=== PATIENT | male | born 1945 | race Caucasian/White ===

== ENCOUNTER 2025-01-15 16:51 | Inpatient (IN) | payer OTHER, SELFPAY ==
[2025-01-14 14:23] VITALS: BP 152/90
[2025-01-14 14:44] LABS: Hematocrit 43.8 % (39.0-52.0); Hemoglobin 15.0 g/dL (13.0-18.0); Mean Corp Hgb Conc. 34.2 g/dL (33.0-37.0); Mean Corpuscular Volume 90.7 fL (80.0-94.0); Nucleated Red Blood Cells % 0 % (-); Platelet Count 200 10^3/uL (130-400); Red Cell Dist. Width 13.1 % (11.5-14.5)
[2025-01-14 15:04] LABS: ALT (SGPT) 19 U/L (0-50); AST (SGOT) 22 U/L (17-59); Albumin 4.7 g/dl (3.5-5.0); Alkaline Phosphatase 103 U/L (38-126); Blood Urea Nitrogen 14 mg/dl (9-20); Calcium 9.7 mg/dl (8.4-10.2); Carbon Dioxide 30 mmol/L (22-30); Chloride 104 mmol/L (98-107); Glucose 111 mg/dl (70-99); Potassium 4.3 mmol/L (3.5-5.1); Sodium 141 mmol/L (135-145); Total Protein 7.6 g/dl (6.3-8.2); eGFR > 60.00
--- NOTE | 2025-01-14 16:44 | ED.GENMED ---
History of Present Illness
General
Chief Complaint: Change in Mental Status
Time Seen by Provider: 01/14/25 16:21
History of Present Illness
History of Present Illness:
80-year-old male with history of hyperlipidemia, hypertension, mild memory loss presenting to the emergency department with sudden onset memory loss this morning. Patient's noticed that patient had no recollection of what she just said to
patient and patient had no recollection of what happened yesterday evening. No traumatic events. No headache. No numbness tingling. No weakness. She does state that he has forgetfulness sometimes but never to this degree. He does have history
of TIA.
Phy Exam
Physical Exam
Physical Exam:
GENERAL: in no acute distress
HEENT: normocephalic, extraocular movements intact, moist oral mucosa
NECK: normal inspection
RESPIRATORY: no respiratory distress, clear to auscultation bilaterally
CARDIOVASCULAR: regular rate and rhythm
ABDOMEN/: soft, non-distended, non-tender to palpation, no rebound or guarding
EXTREMITIES: non-tender, no edema/swelling
NEUROLOGIC: alert and oriented x 3, cranial nerves II-XII intact, right upper extremity strength 5/5, left upper extremity strength 5/5, right lower extremity strength 5/5, left lower extremity strength 5/5, normal sensation to light touch, normal
pujopq-iw-oyjf and wibt-ye-cfak, gait not tested formally
SKIN: warm
Course
Orders/Labs/Results
Orders:
Orders
01/14/25 14:32
Complete Blood Count/With Diff Urgent
Comprehensive Metabolic Panel Urgent
01/14/25 16:22
Electrocardiogram (*1) Urgent
Reason for Study: TIA/Stroke
EKG- Treatment ONCE
01/14/25 16:43
CT Head W/o Iv Contrast Urgent
Comment:
Reason For Exam: amnesia
01/14/25 17:55
Urinalysis Reflex To Culture Urgent
Date Specimen was Collected: 01/14/25
Time Specimen was Collected: 17:53
Abnormal Lab Results
01/14/25
14:32
MCH 31.1 H pg
(27.0-31.0)
Absolute Lymphs (auto) 1.0 L 10^3/uL
(1.2-3.4)
Absolute Monos (auto) 1.0 H 10^3/uL
(0.1-0.6)
Lymphocytes % 13.5 L %
(20.5-51.1)
Monocytes % 12.8 H %
(1.7-9.3)
Glucose 111 H mg/dl
(70-99)
01/14/25 14:32
01/14/25 14:32
Vital Signs
Initial and Last Documented VS:
Initial Vital Signs
Temp Pulse Resp BP Pulse Ox
98.0 F 64 16 152/90 98
01/14/25 14:23 01/14/25 14:23 01/14/25 14:23 01/14/25 14:23 01/14/25 14:23
Last Documented Vital Signs
Temp Pulse Resp BP Pulse Ox
98.0 F 63 16 164/92 96
01/14/25 14:23 01/14/25 16:59 01/14/25 16:59 01/14/25 16:59 01/14/25 16:59
MDM/Problems Addressed
Differential Diagnosis Includes:
Patient is a 72-year-old man presenting to the emergency department with sudden onset memory loss that occurred this morning. Vitals and exam is reassuring. Differential consists of transient global amnesia versus electrolyte derangement or
infection though less likely. Could be TIA. Blood work obtained prior to my evaluation is unremarkable. Will obtain EKG urinalysis and CT scan. Patient will need admission for further evaluation.
*Pulse Oximetry
SaO2: 98
Oxygen Mode of Delivery: Room air
Patient hypoxic: no (96)
*Critical Care Note
Total Time (30-74mins, 75-104mins- exclusive of procedures): Not Applicable
Update Note
Update Note:
Urinalysis unremarkable. Discussed with hospitalist excepted patient to their service with CT scan pending.
ED Attending Note
-
Portions of this chart may have been created with voice recognition software.� Occasional wrong word or��sound alike� substitutions may have occurred due to the inherent limitations of voice recognition software.
Discharge Plan
Departure
Patient Disposition: Admit
Date of Disposition: 01/14/25
Time of Disposition: 19:16
Presentation/result/management discussed w/ accepting MD/DO: Hospitalist
Discharge Problem:
TGA (transient global amnesia)
Referrals:
Virginia Lopez DO [Family Provider, Internal Medicine]
Interventions
Interventions:
*Risk Screen - Suicide Last Done: 01/14/25 14:23
*General Assessment Last Done: 01/14/25 16:57
*Neglect/Abuse Screening Last Done: 01/14/25 14:23
*ED- Fall Risk Assessment Last Done: 01/14/25 16:57
*ED COVID-19 Vaccine History Last Done: 01/14/25 16:57
ED- Pulmonary Assessment Last Done: 01/14/25 16:57
ED- Neurological Assessment Last Done: 01/14/25 16:57
ED- Cardiac Assessment Last Done: 01/14/25 16:57
ED Swallowing Screen Last Done: 01/14/25 16:57
Discharge Date and Time
Print Language: POLISH
[2025-01-14 16:57] VITALS: BMI 30.9
[2025-01-14 16:59] VITALS: BP 164/92
[2025-01-14 18:03] LABS: Urine Character Clear (Clear)
--- NOTE | 2025-01-14 19:44 | HPS.HSE ---
Family Physician
-
Family Physician: Virginia Lopez
Chief Complaint
-
memory loss
History of Present Illness
80-year-old male past medical history of TIA, hyperlipidemia, hypertension, mild memory impairment presenting with sudden onset memory loss this morning. Patient's noticed that patient had no recollection of what she just said to him and he
had no recollection of what happened yesterday evening. No head injury or trauma. No headache. No numbness or tingling or focal weakness. He has occasional forgetfulness but never to this degree.
He admits to chewing tobacco occasionally. Denies alcohol.
Medical History
Past Medical History
Past Medical History: Reports Other (TIA, hyperlipidemia, hypertension, mild memory impairment)
Past Surgical History: Reports None
Social History
Tobacco: Other (chews tobacco)
Alcohol: None
Drug: None
Family History
Family History: Not pertinent
Allergies / Home Medications
Allergies reflects when Allergies were last updated in [employer].
Home Medications with original date entered in [employer]
Allergy/Medication List:
Allergies
Allergy/AdvReac Type Severity Reaction Status Date / Time
multi vitamins Allergy Unknown Uncoded 01/14/25 14:28
Review of Systems
-
History Source: Patient
A 12 point ROS was completed and negative except as noted: Yes
Physical Exam
Vital Signs
Vital Signs
Temp Pulse Resp BP Pulse Ox
98.0 F 63 16 164/92 96
01/14/25 14:23 01/14/25 16:59 01/14/25 16:59 01/14/25 16:59 01/14/25 16:59
Physical Exam
General: Well Developed, Well Nourished and No Apparent Distress
HEENT: NormoCephalic, Moist mucous membranes and Atraumatic
Respiratory: Clear
Cardiac: S1/S2 and Regular Rhythm; No Murmur or Rub
GI: Soft, Non Tender, Non Distended and Normal Bowel Sounds; No Organomegaly
Rectal: Deferred by Provider
Musculoskeletal: No Clubbing, No Cyanosis and No Edema
Skin: No Rash
Neuro: Nonfocal/grossly intact
Laboratory Results
-
01/14/25 14:32
01/14/25 14:32
Laboratory Results
Total Bilirubin 0.8 mg/dl (0.2-1.3) 01/14/25 14:32
AST 22 U/L (17-59) 01/14/25 14:32
ALT 19 U/L (0-50) 01/14/25 14:32
Alkaline Phosphatase 103 U/L (38-126) 01/14/25 14:32
Data Reviewed
-
Lab Data: Labs Reviewed by me
Old Records: Reviewed
Impression/Plan
-
IMPRESSION:
PLAN:
# Sudden memory loss likely transient global amnesia
-No neurological deficits
- Urinalysis negative
- CT head pending
- Check MRI brain
-Neurology consulted
-unable to get history from
History of TIA
Hyperlipidemia
Essential hypertension
History of mild memory impairment
Full code
DVT prophylaxis�SCDs
Regular diet
[2025-01-14 21:04] VITALS: BMI 31.3
[2025-01-14 21:15] VITALS: BP 139/104
--- NOTE | 2025-01-14 21:15 | PTCARENOTE ---
Received patient from ED via stretcher. Patient ambulated from stretcher to bed with a standby assist. Oriented patient to room and placed call montgomery within reach.
[2025-01-14] MEDS: VITAMIN D3 (cholecalciferol) 25 MCG PO (22:15)
[2025-01-14] MEDS: PROTONIX 20 MG PO (22:16)
[2025-01-14] MEDS: LEXAPRO 20 MG PO (22:16)
[2025-01-14] MEDS: ASPIRIN 325 MG PO (22:16)
[2025-01-14] MEDS: PRAVACHOL 40 MG PO (22:23)
[2025-01-14 23:35] VITALS: BP 138/80
[2025-01-15] VITALS (7 sets, daily range): BP systolic 140–168; BP diastolic 74–97
[2025-01-15] MEDS: MOTRIN 800 MG PO (02:27)
[2025-01-15 07:53] LABS: Hematocrit 42.4 % (39.0-52.0); Hemoglobin 14.2 g/dL (13.0-18.0); Mean Corp Hgb Conc. 33.5 g/dL (33.0-37.0); Mean Corpuscular Volume 91.6 fL (80.0-94.0); Nucleated Red Blood Cells % 0 % (-); Platelet Count 192 10^3/uL (130-400); Red Cell Dist. Width 13.2 % (11.5-14.5)
[2025-01-15 08:24] LABS: ALT (SGPT) 18 U/L (0-50); AST (SGOT) 24 U/L (17-59); Albumin 4.2 g/dl (3.5-5.0); Alkaline Phosphatase 108 U/L (38-126); Blood Urea Nitrogen 16 mg/dl (9-20); Calcium 8.7 mg/dl (8.4-10.2); Carbon Dioxide 29 mmol/L (22-30); Chloride 104 mmol/L (98-107); Estimated Creatinine Clearance 80 ml/min; Glucose 93 mg/dl (70-99); Potassium 4.5 mmol/L (3.5-5.1); Sodium 141 mmol/L (135-145); Total Protein 6.8 g/dl (6.3-8.2); eGFR > 60.00
--- NOTE | 2025-01-15 14:57 | W.PN.HOSP.TC ---
Addendum entered and electronically signed by Rosette España MD 01/15/25 16:00:
I saw and evaluated the patient independently. I reviewed the resident�s note and agree with findings and plan as documented by Dr. Loving.
GENERAL: well developed, well nourished, male in no apparent distress
HEENT: NC/AT
HEART: regular rate and rhythm, +S1, +S2
LUNGS : clear to auscultation bilaterally
ABDOM: soft, nontender, nondistended, + bowel sounds
EXT: no cyanosis, clubbing, or edema
NEUROLOGIC: grossly intact--still does have evidence of memory deficit
Altered mental status/memory impairment--likely transient global amnesia versus TIA versus seizure versus encephalitis--head CT neg but MRI with significant findings in temporal lobe--no physical neurologic issues--no signs of infection--await neuro
input
Hyperlipidemia--pravastatin
Essential hypertension--atenolol
depression--escitalopram
DVT proph--SCDs
CODE STATUS--Full code
Original Note:
Today's Communication/Plan
-
restarted HTN med
awaiting neurology consultation
Assessment / Plan
Assessment / Plan
Mr. Fenton is a 80-year-old male past medical history of TIA, hyperlipidemia, hypertension, depression, mild memory impairment presenting with sudden onset memory loss. Patient's noticed that patient had no recollection of what she just said to
him and he had no recollection of what happened evening before (01/13). She reports no head injury or trauma. No headache. He has no numbness or tingling or focal weakness. Head CT was normal with no signs of hemorrhage or ischemia. Brain MRI
concerning for abnormalities. Neurology consulted for further recs.
#Altered mental status
#memory impairment
likely transient global amnesia versus TIA versus seizure versus encephalitis
CT head normal
Brain MRI--Punctate foci of increased diffusion-weighted signal are often seen in association with transient global amnesia, usually smaller than in this patient, arger area of signal abnormality raises the possibility of signal intensity
abnormality from a seizure or encephalitis
No neurological deficits, less likely stroke
Urinalysis negative, less likely infection
Neurology consulted
#Hyperlipidemia
pravastatin 40mg QD
#Essential hypertension
atenolol 100mg QD
#depression
escitalopram 20mg QD
DVT prophylaxis
SCDs
CODE STATUS
Full code
Anticipated Discharge: > 48 hours
Subjective/Interval History
-
Patient was seen today at bedside. he reported feeling well and had no issues overnight. He doesnt not clearly remember how he got to the hospital and last remebered being at dinner with friends tuesday night, when it was actually tuesday night. He
does not remember much else afterwards. at bedside reports that she noticed a change that evening that started with him having cold symptoms, cough runny nose that resolved quickly. Later that evening he laid down to take a nap and his
noticed that his left arm was shaking on and off for 1hr. She also reported that he may not have been taking his medications properly for about 2 months. She states that he is currently about 90% back to baseline and that his sister was recently
diagnosed with vascular dementia. Date of Service: January 15, 2025
Objective Data
-
Labs:
Laboratory Results
01/15/25
06:23
WBC 6.7
Hgb 14.2
Hct 42.4
Plt Count 192
Sodium 141
Potassium 4.5
Chloride 104
Carbon Dioxide 29
BUN 16
Creatinine 0.9
Glucose 93
Calcium 8.7
Total Bilirubin 0.7
AST 24
ALT 18
Alkaline Phosphatase 108
Vital Signs:
Vital Signs
Temp Pulse Resp BP Pulse Ox
98.8 F 61 16 149/85 93
01/15/25 11:00 01/15/25 11:00 01/15/25 11:00 01/15/25 11:00 01/15/25 11:00
I&O
01/14/25 01/15/25 01/16/25
06:59 06:59 06:59
Intake Total 480 / 480
Balance 480 / 480
Review of Systems
-
History Source: Patient and Family
Constitutional: Reports No Symptoms; Denies Fever or Fatigue
EENT: Reports No Symptoms Reported; Denies Sore Throat
Respiratory: Reports No Symptoms; Denies Cough or Trouble Breathing
Cardiac: Reports No Symptoms; Denies Chest Pain or Palpitations
Abdomen/GI: Reports No Symptoms; Denies Abdominal Pain, Nausea or Vomiting
Genitourinary: Reports No Symptoms; Denies Dysuria
Musculoskeletal: Reports No Symptoms; Denies Joint Pain
Neuro: Reports No Symptoms; Denies Dizzy, Headache, Weakness or Numbness
Physical Exam
-
General: Well Developed, Well Nourished, No Apparent Distress and Comfortable
HEENT: Normocephalic, Atraumatic, Anicteric, No Ptosis and PERRLA
Respiratory: Clear to Auscultation; Negative Wheezes, Rales or Crackles
Cardiac: Regular Rhythm and S1/S2; Negative Murmur or Rub
GI: Soft, Nontender, Nondistended and Normal Bowel Sounds
Musculoskeletal: No Clubbing
Neuro: Awake, Alert, Oriented, AO x 3, No Motor Deficits, Central Nerve's Intact and No Sensory Deficits; Negative Tremors, Slurred Speech or Facial Droop
--- NOTE | 2025-01-15 15:16 | CM ---
Patient seen at bedside on with physicians. Patient present second visit. Patient lives with in an apartment at [facility]. Patient stated that his PCP is Dr. Villela and he uses the [facility] in [place]. Patient indicated that
he was normally independent but uses a CPAP machine at home. Patient has had some issues with memory in the past and his sister was just diagnosed with vascular dementia per patient . Patient stated that he was independent and did not use any
other DME. Patient family awaiting Neuro consult. CM will continue to follow for discharge planning needs.
Plan; home with VN and family supports.
[2025-01-15] MEDS: PROTONIX 40 MG PO (20:44)
[2025-01-15] MEDS: PRAVACHOL 40 MG PO (20:44)
[2025-01-15] MEDS: VITAMIN D3 (cholecalciferol) 25 MCG PO (20:44)
[2025-01-15] MEDS: LEXAPRO 20 MG PO (20:44)
[2025-01-15] MEDS: TENORMIN 100 MG PO (20:45)
--- NOTE | 2025-01-15 21:23 | CON.NEURO ---
Neuro Assessment/Plan
Assessment
clinically transient global amnesia now resolved
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
believe that it could be sequela of seizure which would be expect to resolve within days; it being the cause of seizure would be less likely as no clinical suspicion for encephalitis, and the shape would be unusual for a tumor/mass
will check EEG and if normal D/c home no rx
would repeat MRI w/o and w/ contrast in a few weeks to confirm resolution
Consultation
Order
Date of Consultation: 01/15/25
Requesting Provider: Broderick Cavazos
Reason for Consult: TGA
Subjective/Objective
Subjective Data
Date of Service: January 15, 2025
from h&p
80-year-old male past medical history of TIA, hyperlipidemia, hypertension, mild memory impairment presenting with sudden onset memory loss this morning. Patient's noticed that patient had no recollection of what she just said to him and he
had no recollection of what happened yesterday evening. No head injury or trauma. No headache. No numbness or tingling or focal weakness. He has occasional forgetfulness but never to this degree.
patient and report he is back to his baseline. no recent personality changes, no hallucinations, no weakness/numbness
she noted some abnormal jerking movements left arm only during sleep on tuesday.
Objective Data
Vital Signs
Temp Pulse Resp BP Pulse Ox
37.1 C 64 19 142/84 92
01/15/25 19:35 01/15/25 19:35 01/15/25 19:35 01/15/25 19:35 01/15/25 19:35
Lab Results
01/15/25 06:23
01/15/25 06:23
Sodium 141 mmol/L (135-145) 01/15/25 06:23
Potassium 4.5 mmol/L (3.5-5.1) 01/15/25 06:23
BUN 16 mg/dl (9-20) 01/15/25 06:23
Glucose 93 mg/dl (70-99) 01/15/25 06:23
Calcium 8.7 mg/dl (8.4-10.2) 01/15/25 06:23
Patient Allergies
multi vitamins Allergy (Uncoded 01/14/25 14:28)
Unknown
Physical Exam
-
AAOx3, speech clear, language intact
VFF, EOMI, face symmetric
full strength b/l UE/LE
Medications
-
Active Medications
Generic Name Dose Route Start Last Admin
Trade Name Freq PRN Reason Stop Dose Admin
Atenolol 100 mg 01/15/25 20:00 01/15/25 20:45
Atenolol 50 Mg Tablet PO 02/12/25 19:59 100 mg
DAILY@1999 [facility] Administration
Cholecalciferol 25 mcg 01/15/25 20:00 01/15/25 20:44
Cholecalciferol (Vitamin D3) 25 Mcg Tablet (1,000 Units) PO 02/12/25 19:59 25 mcg
DAILY@1999 [facility] Administration
Escitalopram Oxalate 20 mg 01/15/25 20:00 01/15/25 20:44
Escitalopram 20 Mg Tablet PO 02/12/25 19:59 20 mg
DAILY@1999 [facility] Administration
Ferrous Sulfate 325 mg 01/16/25 08:00
Ferrous Sulfate 325 Mg Tablet PO 02/13/25 07:59
WE DELMA
Ibuprofen 800 mg 01/15/25 02:16 01/15/25 02:27
Ibuprofen 400 Mg Tablet PO 02/11/25 22:03 800 mg
BIDPRN PRN Administration
MILD PAIN
Pantoprazole Sodium 40 mg 01/15/25 20:00 01/15/25 20:44
Pantoprazole 40 Mg Delayed Release Tablet PO 02/12/25 19:59 40 mg
DAILY@1999 [facility] Administration
Pravastatin Sodium 40 mg 01/15/25 20:00 01/15/25 20:44
Pravastatin 40 Mg Tablet PO 02/12/25 19:59 40 mg
DAILY@1999 [facility] Administration
Sodium Chloride 0 flush 01/14/25 22:00
Sodium Chloride 0.9% (Flush) Syringe IV 02/11/25 21:59
PER PROTOCOL [facility]
Home Medications
�Medication �Instructions �Recorded
aspirin 325 mg tablet 325 mg PO DAILY@1999 Blood Clot 01/14/25
Prevention/Tx
atenolol 100 mg tablet 100 mg PO DAILY@1999 Blood Pressure 01/14/25
bismuth subsalicylate 262 mg 524 mg PO DAILYPRN PRN diarrhea 01/14/25
tablet (Pepto-Bismol)
cholecalciferol (vitamin D3) 25 25 mcg PO DAILY@1999 Supplement 01/14/25
mcg (1,000 unit) tablet
escitalopram oxalate 20 mg tablet 20 mg PO DAILY@1999 Diabetes 01/14/25
ferrous sulfate 325 mg (65 mg 325 mg PO WE Supplement 01/14/25
iron) tablet (iron)
ibuprofen 200 mg tablet 800 mg PO BIDPRN PRN mild pain 01/14/25
omeprazole 20 mg capsule,delayed 20 mg PO DAILY@199901/14/25
release Gastrointestinal Issue
pravastatin 40 mg tablet 40 mg PO DAILY@1999 High 01/14/25
Cholesterol
[2025-01-16] VITALS (9 sets, daily range): BP systolic 127–163; BP diastolic 68–99; PULSE 52–63; O2SAT 96
[2025-01-16 07:44] LABS: Hematocrit 41.5 % (39.0-52.0); Hemoglobin 14.4 g/dL (13.0-18.0); Mean Corp Hgb Conc. 34.7 g/dL (33.0-37.0); Mean Corpuscular Volume 91.0 fL (80.0-94.0); Platelet Count 180 10^3/uL (130-400); Red Cell Dist. Width 13.1 % (11.5-14.5)
[2025-01-16 08:19] LABS: Blood Urea Nitrogen 16 mg/dl (9-20); Calcium 9.0 mg/dl (8.4-10.2); Carbon Dioxide 26 mmol/L (22-30); Chloride 106 mmol/L (98-107); Estimated Creatinine Clearance 103 ml/min; Glucose 107 mg/dl (70-99); Potassium 3.8 mmol/L (3.5-5.1); Sodium 139 mmol/L (135-145); eGFR > 60.00
[2025-01-16] MEDS: FEOSOL 325 MG PO (08:50)
--- NOTE | 2025-01-16 12:40 | EEG.RPT ---
Electroencephalogram Report
Recording
Date of EE01/16/25
Type of EEG: Routine
Length of EEG recordin mins
Done with Video Recording: Yes
Patient Status: Inpatient
Recording Conditions: Awake and Drowsy
Hyperventilation Performed: No
Photic Stimulation Performed: Yes
Hand Dominance: Right
Report
Clinical Background:�80 year old man with transient global amnesia, suspected seizure
Introduction: A routine bedside EEG was done using [employer] 10-20 electrode placement protocol.
Background: In the most alert state, the PDR is 8-9 Hz in frequency with normal amplitude. There is spontaneous variability and reactivity.�
Sleep: No sleep is seen.�
Focal/epileptiform: Occasional focal slowing left hemisphere seen F7, T3, T5, F3, C3. There were no epileptiform discharges. No clinical or electrographic seizures occurred during this recording.
Photic stimulation: resulted in no driving response. There was no photo myogenic or photoparoxysmal response.�
Impression: intermittent focal slowing left hemisphere
Clinical Correlation: structural/function abnormality within left hemisphere
[2025-01-16] MEDS: MOTRIN 800 MG PO (13:10)
--- NOTE | 2025-01-16 15:11 | W.PN.HOSP.TC ---
Addendum entered and electronically signed by Rosette España MD 01/16/25 17:26:
I saw and evaluated the patient independently. I reviewed the resident�s note and agree with findings and plan as documented by Dr. Loving.
GENERAL: well developed, well nourished, male in no apparent distress
HEENT: NC/AT
HEART: regular rate and rhythm, +S1, +S2
LUNGS : clear to auscultation bilaterally
ABDOM: soft, nontender, nondistended, + bowel sounds
EXT: no cyanosis, clubbing, or edema
NEUROLOGIC: grossly intact--still does have evidence of memory deficit
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
Hyperlipidemia--pravastatin
Essential hypertension--atenolol
depression--escitalopram
DVT proph--SCDs
CODE STATUS--Full code
Original Note:
Today's Communication/Plan
-
EEG done today showing possible encephalitis
ID consulted
Assessment / Plan
Assessment / Plan
Mr. Fenton is a 80-year-old male past medical history of TIA, hyperlipidemia, hypertension, depression, mild memory impairment presenting with sudden onset memory loss. Patient's noticed that patient had no recollection of what she just said to
him and he had no recollection of what happened evening before (01/13). She reports no head injury or trauma. No headache. He has no numbness or tingling or focal weakness. Head CT was normal with no signs of hemorrhage or ischemia. Brain MRI
concerning for abnormalities. Neurology consulted and ordered EEG. EEG showed left focal slowing concerning for encephalitis. LP ordered to evaluate.
#Altered mental status
#memory impairment
likely transient global amnesia versus TIA versus seizure versus encephalitis
CT head normal
Brain MRI--Punctate foci of increased diffusion-weighted signal are often seen in association with transient global amnesia, usually smaller than in this patient, larger area of signal abnormality raises the possibility of signal intensity
abnormality from a seizure or encephalitis
No neurological deficits, less likely stroke
Urinalysis negative, less likely infection
Neurology consulted
would repeat MRI w/o and w/ contrast in a few weeks to confirm resolution
EEG showed left focal slowing concerning for encephalitis.
LP ordered
ID consult
#Diarrhea
one episode
cont to monitor
consider Imodium if it continues
#Hyperlipidemia
pravastatin 40mg QD
#Essential hypertension
atenolol 100mg QD
#depression
escitalopram 20mg QD
DVT prophylaxis
SCDs
CODE STATUS
Full code
Anticipated Discharge: 24 - 48 hours
Subjective/Interval History
-
Patient was seen at bedside today without present. He reported no issues overnight but was confused in the middle of the night and had to be reoriented. This AM patient was more disoriented than yesterday and could not remember speaking with
neurologist. PT was evaluated by OT with [facility] showing cognitive impairment. He reported an episode of diarrhea but does not have abdominal pain. Date of Service: January 16, 2025
Objective Data
-
Labs:
Laboratory Results
01/16/25
06:59
WBC 7.9
Hgb 14.4
Hct 41.5
Plt Count 180
Sodium 139
Potassium 3.8
Chloride 106
Carbon Dioxide 26
BUN 16
Creatinine 0.7
Glucose 107 H
Calcium 9.0
Vital Signs:
Vital Signs
Temp Pulse Resp BP Pulse Ox
98.5 F 59 16 163/95 93
01/16/25 12:00 01/16/25 12:00 01/16/25 12:00 01/16/25 12:00 01/16/25 12:00
I&O
0701/16/25 01/17/25
06:59 06:59 06:59
Intake Total 480 / 480 480 / 480
Output Total 650 / 650
Balance 480 / 480 -170 / -170
Review of Systems
-
Unable to obtain full review of systems at this time due to: Dementia
History Source: Patient
Constitutional: Reports No Symptoms; Denies Fever or Fatigue
EENT: Reports No Symptoms Reported; Denies Sore Throat or Runny Nose
Respiratory: Reports No Symptoms; Denies Cough or Trouble Breathing
Cardiac: Reports No Symptoms; Denies Chest Pain or Palpitations
Abdomen/GI: Reports Diarrhea; Denies Abdominal Pain, Nausea or Vomiting
Musculoskeletal: Reports No Symptoms
Neuro: Reports No Symptoms; Denies Dizzy, Headache or Weakness
Physical Exam
-
General: Well Developed, Well Nourished, No Apparent Distress and Comfortable
HEENT: Normocephalic and Atraumatic
Respiratory: Clear to Auscultation; Negative Wheezes or Crackles
Cardiac: Regular Rhythm and S1/S2; Negative Murmur or Rub
GI: Soft, Nontender, Nondistended and Normal Bowel Sounds
Musculoskeletal: No Clubbing, No Cyanosis and No Edema
Skin: Warm and Dry
Neuro: Awake, Alert, AO x 3 (AAO x 1 to self, ), No Motor Deficits and Nonfocal/Grossly Intact; Negative Slurred Speech
Psych: Calm
--- NOTE | 2025-01-16 18:02 | CON.ID ---
Consultation
-
Date/Time Consultation Requested: 01/16/2025 1531
Date/Time Consultation Performed: 01/16/2025 1750
Requesting Provider: Dr. Loving
Performing Provider: Dr. Martins
Reason for Consultation: Encephalopathy
Chief Complaint / Past History
History of Present Illness
Austin Fenton is a 80-year-old man being evaluated at the request of Dr. Loving regarding encephalopathy. History is obtained from chart review, along with patient interview.
According to reviewed history, the patient presented to the ER on 01/14/2025 after the sudden onset of memory loss earlier that morning. According to reviewed history, the patient's noticed that the patient had no recollection of what she had
just said to the patient and no recollection of what had happened the evening prior. No history of traumatic events, no reported headache. No seizure activity was noted. The had admitted that the patient was sometimes forgetful but never to
this degree.
The patient was admitted, and evaluated by neurology. Additionally, MRI imaging was performed which revealed an abnormality in the left temporal lobe area. Infectious Diseases is asked to comment upon possible infectious etiology, and further
workup.
At this time, the patient reports that he still feels 'out of it'. He denies any headache. He denies any fevers or chills.
Past History
Additional Past Medical History:
TIA
HLD
HTN
Memory impairment
Past Surgical History: None
Allergy History:
multi vitamins Allergy (Uncoded 01/14/25 14:28)
Unknown
Medications Reviewed: Yes
Current Antibiotics:
None
Social History
Tobacco: Other (Chew tobacco (occasional))
Alcohol: None
Drug: None
Personal:
Living: With Family
Employment: Retired
Family History
Family History: Not Pertinent
Review of Systems
Vital Signs
Temp Pulse Resp BP Pulse Ox
98.1 F 58 18 144/83 96
01/16/25 15:07 01/16/25 15:07 01/16/25 15:07 01/16/25 15:07 01/16/25 15:07
Physical Exam
Physical Exam
Constitutional: No Acute Distress, Comfortable and Non-toxic
Eyes: No Conjunctival Hemorrhage and Sclera Anicteric
Oral: No Thrush and No Ulcers
Cardiovascular: Regular Rate and S1/S2; Negative S3/S4
Pulmonary: Clear; Negative Wheezes, Rales or Rhonchi
Gastrointestinal: Non Tender and Non Distended
Extremities: Negative Edema or Cyanosis
Neurological: Awake, Alert, Normal Muscle Strength, No Motor Deficits and Other (occasional 'thought finding' inability); Negative Meningeal Signs
Psychological: Calm and Confused (very mild); Negative Agitated
Lab / Diagnostic Study Results
01/16/25 06:59
01/16/25 06:59
Abs Immat Gran (auto) 0.0 10^3/uL (0-0.05) 01/15/25 06:23
Absolute Neuts (auto) 4.3 10^3/uL (1.4-6.5) 01/15/25 06:23
Absolute Lymphs (auto) 1.2 10^3/uL (1.2-3.4) 01/15/25 06:23
Absolute Monos (auto) 1.1 10^3/uL (0.1-0.6) H 01/15/25 06:23
Absolute Basos (auto) 0.0 10^3/uL (0-0.2) 01/15/25 06:23
Immature Gran % 0.3 % (0-0.5) 01/15/25 06:23
Neutrophils % 64.0 % (42.2-75.2) 01/15/25 06:23
Lymphocytes % 17.6 % (20.5-51.1) L 01/15/25 06:23
Monocytes % 16.1 % (1.7-9.3) H 01/15/25 06:23
Eosinophils % 1.5 % (0-6) 01/15/25 06:23
Basophils % 0.5 % (0-2) 01/15/25 06:23
Microbiology Results
Micro:
01/15/25 03:16 MRSA Screen - Final
Nose No Methicillin Resistant Staphylococcus aureus isolated.
Imaging:
01/15/2025 MRI brain: Increased diffusion�weighted signal and increased T2 and flair signal involving the medial left temporal lobe. The degree of signal abnormality in this patient is greater than usually expected in association with transient
global amnesia. Therefore, differential consideration of focus of epilepsy, with resultant signal intensity abnormality from a seizure. Encephalitis could conceivably be considered as a differential consideration, although felt to be less likely,
based on morphology and distribution. Please correlate clinically. Please see full dictation for additional detail.
Assessment / Plan
Encephalopathy
- Temporal lobe abnormality noted on MRI
TIA
HLD
HTN
Memory impairment
Recommendations:
Although somewhat unlikely given physical exam, VZV and HSV encephalopathy remain in the differential.
Patient plan for LP tomorrow.
Pending diastolic procedure, will initiate empiric acyclovir.
Await results from LP; if CSF PCR negative for HSV and VZV, will discontinue further acyclovir.
[2025-01-16] MEDS: ZOVIRAX INJECTION 266 MG IV (18:32)
--- NOTE | 2025-01-16 20:42 | W.PN.NEURO.1 ---
Today's Communication / Plan
-
LP tomorrow
Neuro Assessment/Plan
Assessment
clinically transient global amnesia now resolved
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
believe that it could be sequela of seizure which would be expect to resolve within days; it being the cause of seizure would be less likely as no clinical suspicion for encephalitis, and the shape would be unusual for a tumor/mass
EEG showing left hemisphere focal slowing indicating structural/functional abnormality
with worsening mentation and concern that the MRI lesion Represents encephalitis, check LP for viral PCR, crypto, acid fast, fungal culture for now
Subjective/Objective
Subjective Data
Date of Service: January 16, 2025
today memory is significantly worse, can't remember his age or how many children he has. no further seizures
Objective Data
Vital Signs
Temp Pulse Resp BP Pulse Ox
36.9 C 63 20 155/84 93
01/16/25 19:23 01/16/25 19:23 01/16/25 19:23 01/16/25 19:23 01/16/25 19:23
Lab Results
01/16/25 06:59
01/16/25 06:59
Sodium 139 mmol/L (135-145) 01/16/25 06:59
Potassium 3.8 mmol/L (3.5-5.1) 01/16/25 06:59
BUN 16 mg/dl (9-20) 01/16/25 06:59
Glucose 107 mg/dl (70-99) H 01/16/25 06:59
Calcium 9.0 mg/dl (8.4-10.2) 01/16/25 06:59
Patient Allergies
multi vitamins Allergy (Uncoded 01/14/25 14:28)
Unknown
Physical Exam
-
awake and alert, cooperative, conversant, disoriented
VFF, EOMI, face symmetric
full strength b/l UE/LE
[2025-01-16] MEDS: LEXAPRO 20 MG PO (22:44)
[2025-01-16] MEDS: PROTONIX 40 MG PO (22:44)
[2025-01-16] MEDS: VITAMIN D3 (cholecalciferol) 25 MCG PO (22:45)
[2025-01-16] MEDS: TENORMIN PO (22:48)
[2025-01-16] MEDS: PRAVACHOL 40 MG PO (22:49)
[2025-01-17] VITALS (13 sets, daily range): BP systolic 71–168; BP diastolic 68–95; PULSE 67; O2SAT 97
[2025-01-17] MEDS: ZOVIRAX INJECTION 266 MG IV ×3 (02:47→18:14)
[2025-01-17 07:23] LABS: Hematocrit 39.1 % (39.0-52.0); Hemoglobin 13.7 g/dL (13.0-18.0); Mean Corp Hgb Conc. 35.0 g/dL (33.0-37.0); Mean Corpuscular Volume 90.9 fL (80.0-94.0); Platelet Count 156 10^3/uL (130-400); Red Cell Dist. Width 13.2 % (11.5-14.5)
[2025-01-17 07:50] LABS: Blood Urea Nitrogen 14 mg/dl (9-20); Calcium 8.8 mg/dl (8.4-10.2); Carbon Dioxide 30 mmol/L (22-30); Chloride 106 mmol/L (98-107); Estimated Creatinine Clearance 90 ml/min; Glucose 106 mg/dl (70-99); Potassium 4.2 mmol/L (3.5-5.1); Sodium 140 mmol/L (135-145); eGFR > 60.00
--- NOTE | 2025-01-17 10:42 | W.PN.HOSP.TC ---
Addendum entered and electronically signed by Rosette España MD 01/17/25 15:08:
I saw and evaluated the patient independently. I reviewed the resident�s note and agree with findings and plan as documented by Dr. Loving.
GENERAL: well developed, well nourished, male in no apparent distress
HEENT: NC/AT
HEART: regular rate and rhythm, +S1, +S2
LUNGS : clear to auscultation bilaterally
ABDOM: soft, nontender, nondistended, + bowel sounds
EXT: no cyanosis, clubbing, or edema
NEUROLOGIC: grossly intact--still does have evidence of memory deficit
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
Hyperlipidemia--pravastatin
Essential hypertension--atenolol
depression--escitalopram
DVT proph--SCDs
CODE STATUS--Full code
Original Note:
Today's Communication/Plan
-
LP today
started empiric acyclovir
Assessment / Plan
Assessment / Plan
Mr. Fenton is a 80-year-old male past medical history of TIA, hyperlipidemia, hypertension, depression, mild memory impairment presenting with sudden onset memory loss. Patient's noticed that patient had no recollection of what she just said to
him and he had no recollection of what happened evening before (01/13). She reports no head injury or trauma. No headache. He has no numbness or tingling or focal weakness. Head CT was normal with no signs of hemorrhage or ischemia. Brain MRI
concerning for abnormalities. Neurology consulted and ordered EEG. EEG showed left focal slowing concerning for encephalitis. LP ordered to evaluate. Started on empiric acyclovir 01/16. OT assessed patient's cognitive function which showed impairement
with BCAT of 30/50
#Altered mental status
#memory impairment
likely transient global amnesia versus TIA versus seizure versus encephalitis
CT head normal
Brain MRI--Punctate foci of increased diffusion-weighted signal are often seen in association with transient global amnesia, usually smaller than in this patient, larger area of signal abnormality raises the possibility of signal intensity
abnormality from a seizure or encephalitis
No neurological deficits, less likely stroke
Urinalysis negative, less likely infection
Neurology consulted
would repeat MRI w/o and w/ contrast in a few weeks to confirm resolution
EEG showed left focal slowing concerning for encephalitis.
LP ordered
ID consult
started empiric acyclovir 01/16
#Diarrhea resolved
one episode
cont to monitor
consider Imodium if it continues
#Hyperlipidemia
pravastatin 40mg QD
#Essential hypertension
atenolol 100mg QD
#depression
escitalopram 20mg QD
DVT prophylaxis
SCDs
CODE STATUS
Full code
Anticipated Discharge: 24 - 48 hours
Subjective/Interval History
-
Mr Fenton was seen at bedside. He is doing well and appeared more oriented than yesterday although could not remember plans discussed with neurologist. Pt had no complaints this AM. He had no issues with diarrhea yesterday. Date of Service: January 17
2024
Objective Data
-
Labs:
Laboratory Results
01/17/25 01/17/25
06:56 10:30
WBC 6.6
Hgb 13.7
Hct 39.1
Plt Count 156
PT Pending
INR Pending
Sodium 140
Potassium 4.2
Chloride 106
Carbon Dioxide 30
BUN 14
Creatinine 0.8
Glucose 106 H
Calcium 8.8
Vital Signs:
Vital Signs
Temp Pulse Resp BP Pulse Ox
98.6 F 58 18 134/85 94
01/17/25 07:04 01/17/25 07:04 01/17/25 07:04 01/17/25 07:04 01/17/25 07:04
I&O
01/16/25 01/17/25 01/18/25
06:59 06:59 06:59
Intake Total 480 / 480 970 / 970
Output Total 650 / 650 2375 / 2375
Balance -170 / -170 -1405 / -1405
Review of Systems
-
Unable to obtain full review of systems at this time due to: Dementia
History Source: Patient
All other systems: Reviewed and negative
Constitutional: Reports No Symptoms; Denies Fever or Fatigue
EENT: Reports No Symptoms Reported; Denies Sore Throat
Respiratory: Reports No Symptoms; Denies Cough or Trouble Breathing
Cardiac: Reports No Symptoms; Denies Chest Pain or Palpitations
Abdomen/GI: Reports No Symptoms; Denies Abdominal Pain, Nausea or Diarrhea
Genitourinary: Reports No Symptoms; Denies Dysuria
Neuro: Reports No Symptoms and Headache
Physical Exam
-
General: Well Developed, Well Nourished, No Apparent Distress and Comfortable
HEENT: Normocephalic and Atraumatic
Respiratory: Clear to Auscultation; Negative Wheezes or Crackles
Cardiac: Regular Rhythm and S1/S2; Negative Murmur
GI: Soft, Nontender, Nondistended and Normal Bowel Sounds
Musculoskeletal: No Clubbing, No Cyanosis and No Edema
Skin: Warm and Dry
Neuro: Awake and Alert
Psych: Calm and Confused
[2025-01-17 10:46] LABS: INR 1.03; PT 14.0 Sec (11.4-14.6)
--- NOTE | 2025-01-17 14:29 | CM ---
Patient seen at bedside with physician on . Patient stated that he was feeling OK but did not remember what was going on. Patient for procedure today, awaiting results. Patient supportive. Patient lives at [facility] in the independent
apartment. CM will continue to follow for discharge planning needs.
Plan; home with VN vs home with no needs.
[2025-01-17 14:33] LABS: CSF Color Colorless; Red Cell Count/CSF 19 mm^3; White Cell Count/CSF 1 mm^3 (0-5)
--- NOTE | 2025-01-17 19:51 | W.PN.NEURO.1 ---
Today's Communication / Plan
-
start IVIG x5 days
Neuro Assessment/Plan
Assessment
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
EEG showing left hemisphere focal slowing indicating structural/functional abnormality
CSF WBC 1, RBC 19, glucose 60, protein 75. viral PCR negative.
pending fungal, acid fast, crypto, and [facility] autoimmune encephalopathy panel CSF
presented transient global amnesia now resolved
with acute memory loss not remembering how many children he has, concern that this represents encephalitis, that the presenting TGA was a seizure
workup has been sent and we will start IVIG x5 days
Subjective/Objective
Subjective Data
Date of Service: January 17, 2025
patient states feeling well. no further seizures
Objective Data
Vital Signs
Temp Pulse Resp BP Pulse Ox
36.6 C 77 21 139/84 92
01/17/25 19:47 01/17/25 19:47 01/17/25 19:47 01/17/25 19:47 01/17/25 19:47
Lab Results
01/17/25 06:56
01/17/25 06:56
PT 14.0 Sec (11.4-14.6) 01/17/25 10:30
INR 1.03 01/17/25 10:30
Sodium 140 mmol/L (135-145) 01/17/25 06:56
Potassium 4.2 mmol/L (3.5-5.1) 01/17/25 06:56
BUN 14 mg/dl (9-20) 01/17/25 06:56
Glucose 106 mg/dl (70-99) H 01/17/25 06:56
Calcium 8.8 mg/dl (8.4-10.2) 01/17/25 06:56
Patient Allergies
multi vitamins Allergy (Uncoded 01/14/25 14:28)
Unknown
Physical Exam
-
awake and alert, cooperative, conversant, disoriented
VFF, EOMI, face symmetric
full strength b/l UE/LE
[2025-01-17] MEDS: TENORMIN PO (21:02)
[2025-01-17] MEDS: VITAMIN D3 (cholecalciferol) PO (21:03)
[2025-01-17] MEDS: PRAVACHOL PO (21:03)
[2025-01-17] MEDS: LEXAPRO PO (21:03)
[2025-01-17] MEDS: PROTONIX PO (21:04)
[2025-01-17] MEDS: GAMMAGARD 300 IV (22:14)
[2025-01-18] VITALS (8 sets, daily range): BP systolic 138–163; BP diastolic 66–96
[2025-01-18 07:07] LABS: Hematocrit 39.2 % (39.0-52.0); Hemoglobin 13.4 g/dL (13.0-18.0); Mean Corp Hgb Conc. 34.2 g/dL (33.0-37.0); Mean Corpuscular Volume 91.4 fL (80.0-94.0); Platelet Count 177 10^3/uL (130-400); Red Cell Dist. Width 13.2 % (11.5-14.5)
[2025-01-18 07:42] LABS: Blood Urea Nitrogen 13 mg/dl (9-20); Calcium 8.6 mg/dl (8.4-10.2); Carbon Dioxide 27 mmol/L (22-30); Chloride 105 mmol/L (98-107); Estimated Creatinine Clearance 90 ml/min; Glucose 106 mg/dl (70-99); Potassium 4.1 mmol/L (3.5-5.1); Sodium 139 mmol/L (135-145); eGFR > 60.00
[2025-01-18] MEDS: LEXAPRO PO (08:17)
[2025-01-18] MEDS: PRAVACHOL PO (08:18)
[2025-01-18] MEDS: PROTONIX PO (08:18)
[2025-01-18] MEDS: TENORMIN PO (08:19)
[2025-01-18] MEDS: VITAMIN D3 (cholecalciferol) PO (08:19)
--- NOTE | 2025-01-18 11:08 | W.PN.ID1 ---
Date of Service
Date of Service: January 18, 2025
Today's Communication
Sign off.
Assessment / Plan
Encephalopathy
- Temporal lobe abnormality noted on MRI
TIA
HLD
HTN
Memory impairment
Recommendations:
CSF unrevealing except for mildly elevated protein.
CSF PCR panel negative.
Acyclovir D/C'ed
No apparent acute infectious process.
Will see again at your request.
Chief Complaint
-: Other (Encephalopathy)
Subjective / Review of Systems
Review of Systems: No Fever, No Chills and No Stiff Neck
Vital Signs / Physical Exam
Vital Signs
Vital Signs
Temp Pulse Resp BP Pulse Ox
98.3 F 66 16 139/79 95
01/18/25 07:55 01/18/25 07:55 01/18/25 07:55 01/18/25 07:55 01/18/25 07:55
Physical Exam
Constitutional: No Acute Distress, Comfortable and Non-toxic
Eyes: Sclera Anicteric
Pulmonary: Non Labored
Neurological: Awake and Alert; Negative Meningeal Signs
Psychological: Calm
Objective Data
Lab Data
Lab Results
01/18/25 05:59
01/18/25 05:59
PT 14.0 Sec (11.4-14.6) 01/17/25 10:30
INR 1.03 01/17/25 10:30
Estimated Creat Clear 90 ml/min 01/18/25 05:59
Total Bilirubin 0.7 mg/dl (0.2-1.3) 01/15/25 06:23
AST 24 U/L (17-59) 01/15/25 06:23
ALT 18 U/L (0-50) 01/15/25 06:23
Alkaline Phosphatase 108 U/L (38-126) 01/15/25 06:23
Most recent labs reviewed.
Micro Results:
01/17/25 13:46 Meningitis/Encephalitis Panel (PCR) - Final
Csf
Escherichia coli K1 Not Detected
Haemophilus influenzae Not Detected
Listeria monocytogenes Not Detected
Neisseria meningitidis Not Detected
Cytomegalovirus (CMV) Not Detected
Streptococcus agalactiae Not Detected
Streptococcus pneumoniae Not Detected
Enterovirus Not Detected
Herpes simplex virus 1 Not Detected
Herpes simplex virus 2 Not Detected
Human herpesvirus 6 Not Detected
Human parechovirus Not Detected
Varicella zoster virus Not Detected
C. neoformans/gattii Not Detected
01/17/25 13:46 Fungal Culture - Preliminary
Csf Culture in progress.
Positive cultures are reported as soon as detected.
Final report to follow in four to five weeks.
01/17/25 13:46 Acid Fast Bacilli Smear - Pending
Csf Acid Fast Bacilli Culture - Pending
01/15/25 03:16 MRSA Screen - Final
Nose No Methicillin Resistant Staphylococcus aureus isolated.
Imaging:
01/15/2025 MRI brain: Increased diffusion�weighted signal and increased T2 and flair signal involving the medial left temporal lobe. The degree of signal abnormality in this patient is greater than usually expected in association with transient
global amnesia. Therefore, differential consideration of focus of epilepsy, with resultant signal intensity abnormality from a seizure. Encephalitis could conceivably be considered as a differential consideration, although felt to be less likely,
based on morphology and distribution. Please correlate clinically. Please see full dictation for additional detail.
--- NOTE | 2025-01-18 12:37 | W.PN.HOSP.TC ---
Addendum entered and electronically signed by Rosette España MD 01/18/25 13:09:
I saw and evaluated the patient independently. I reviewed the resident�s note and agree with findings and plan as documented by Dr. Loving.
GENERAL: well developed, well nourished, male in no apparent distress
HEENT: NC/AT
HEART: regular rate and rhythm, +S1, +S2
LUNGS : clear to auscultation bilaterally
ABDOM: soft, nontender, nondistended, + bowel sounds
EXT: no cyanosis, clubbing, or edema
NEUROLOGIC: grossly intact--still does have evidence of memory deficit
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
neuro/ID--s/p LP shows elevated protein but otherwise neg
Hyperlipidemia--pravastatin
Essential hypertension--atenolol
depression--escitalopram
DVT proph--SCDs
CODE STATUS--Full code
Original Note:
Today's Communication/Plan
-
Stop acyclovir
Start IVIG per neuro recs
Start Norvasc for hypertension
Assessment / Plan
Assessment / Plan
Mr. Fenton is a 80-year-old male past medical history of TIA, hyperlipidemia, hypertension, depression, mild memory impairment presenting with sudden onset memory loss. Patient's noticed that patient had no recollection of what she just said to
him and he had no recollection of what happened evening before (01/13). She reports no head injury or trauma. No headache. He has no numbness or tingling or focal weakness. Head CT was normal with no signs of hemorrhage or ischemia. Brain MRI
concerning for abnormalities. Neurology consulted and ordered EEG. EEG showed left focal slowing concerning for encephalitis. LP ordered to evaluate. Started on empiric acyclovir 01/16. OT assessed patient's cognitive function which showed impairement
with BCAT of 30/50
#Altered mental status
#memory impairment
likely transient global amnesia versus TIA versus seizure versus encephalitis
CT head normal
Brain MRI--Punctate foci of increased diffusion-weighted signal are often seen in association with transient global amnesia, usually smaller than in this patient, larger area of signal abnormality raises the possibility of signal intensity
abnormality from a seizure or encephalitis
No neurological deficits, less likely stroke
Urinalysis negative, less likely infection
Neurology consulted
would repeat MRI w/o and w/ contrast in a few weeks to confirm resolution
EEG showed left focal slowing concerning for encephalitis.
CSF WBC 1, RBC 19, glucose 60, protein 75. viral PCR negative.
pending fungal, acid fast, crypto, and [facility] autoimmune encephalopathy panel CS
Start IVIG for 5 days 01/18
ID consult
started empiric acyclovir 01/16
Stop acyclovir 01/17
#Diarrhea resolved
one episode
cont to monitor
consider Imodium if it continues
#Hyperlipidemia
pravastatin 40mg QD
#Essential hypertension
Persistently elevated blood pressures without pain
atenolol 100mg QD
Start Norvasc 5 mg daily
#depression
escitalopram 20mg QD
DVT prophylaxis
SCDs
CODE STATUS
Full code
Anticipated Discharge: > 48 hours
Subjective/Interval History
-
Patient was seen at bedside he did not have any complaints. There were no acute overnight events. He does not complain of shortness of breath chest pain or diarrhea. He appears to have the same level of mentation as yesterday with perhaps mild
improvement. Informed the patient about the results of the LP and informed him about switching over to IVIG and length of course. Will update in the afternoon. Date of Service: January 18, 2025
Objective Data
-
Labs:
Laboratory Results
01/18/25
05:59
WBC 5.6
Hgb 13.4
Hct 39.2
Plt Count 177
Sodium 139
Potassium 4.1
Chloride 105
Carbon Dioxide 27
BUN 13
Creatinine 0.8
Glucose 106 H
Calcium 8.6
Vital Signs:
Vital Signs
Temp Pulse Resp BP Pulse Ox
98.3 F 66 16 139/79 95
01/18/25 07:55 01/18/25 07:55 01/18/25 07:55 01/18/25 07:55 01/18/25 07:55
I&O
01/17/25 01/18/25 01/19/25
06:59 06:59 06:59
Intake Total 970 / 970 1340 / 1340
Output Total 2375 / 2375 525 / 525
Balance -1405 / -1405 815 / 815
Review of Systems
-
Unable to obtain full review of systems at this time due to: Dementia
History Source: Patient
All other systems: Reviewed and negative
Constitutional: Reports No Symptoms; Denies Fever or Fatigue
EENT: Reports No Symptoms Reported; Denies Sore Throat or Runny Nose
Respiratory: Reports No Symptoms; Denies Cough or Trouble Breathing
Cardiac: Reports No Symptoms; Denies Chest Pain or Palpitations
Abdomen/GI: Reports No Symptoms; Denies Abdominal Pain, Nausea or Vomiting
Genitourinary: Reports No Symptoms; Denies Dysuria
Physical Exam
-
General: Well Developed, Well Nourished, No Apparent Distress and Comfortable
HEENT: Normocephalic and Atraumatic
Respiratory: Clear to Auscultation; Negative Wheezes or Crackles
Cardiac: Regular Rhythm and S1/S2; Negative Murmur or Rub
GI: Soft, Nontender, Nondistended and Normal Bowel Sounds
Musculoskeletal: No Clubbing, No Cyanosis and No Edema
Skin: Warm and Dry
Neuro: Awake, Alert and Oriented (to self, place, situation)
Psych: Calm
[2025-01-18] MEDS: LEXAPRO 20 MG PO (14:59)
[2025-01-18] MEDS: PRAVACHOL 40 MG PO (15:00)
[2025-01-18] MEDS: TENORMIN 100 MG PO (15:00)
[2025-01-18] MEDS: PROTONIX 40 MG PO (15:00)
[2025-01-18] MEDS: VITAMIN D3 (cholecalciferol) 25 MCG PO (15:00)
--- NOTE | 2025-01-18 15:58 | W.PN.NEURO.1 ---
Today's Communication / Plan
-
complete 5 days of IVIG on 01/21 then outpatient neuro f/u re: antibodies and to determine if he needs outpatient IVIG
Neuro Assessment/Plan
Assessment
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
EEG showing left hemisphere focal slowing indicating structural/functional abnormality
CSF WBC 1, RBC 19, glucose 60, protein 75. viral PCR negative.
pending fungal, acid fast, crypto, and [facility] autoimmune encephalopathy panel CSF
presented transient global amnesia now resolved, due to autoimmune encephalitis.
most commonly NMDA encephalitis associated with SCLC. nonsmoker but worked in [employer], exposed to chemicals
CT torso for cancer screen though if paraneoplastic it often presents 1-2 years before the cancer is detected
if not paraneoplastic then it is often a monophasic illness
Plan
complete 5 days of IVIG on 01/21 then outpatient neuro f/u re: antibodies and to determine if he needs outpatient IVIG
Subjective/Objective
Subjective Data
Date of Service: January 18, 2025
patient and reports substantial improvement in his memory after first dose of IVIG, almost back to his baseline
Objective Data
Vital Signs
Temp Pulse Resp BP Pulse Ox
37.0 C 70 16 153/96 94
01/18/25 14:49 01/18/25 14:49 01/18/25 14:49 01/18/25 14:49 01/18/25 14:49
Lab Results
01/18/25 05:59
01/18/25 05:59
PT 14.0 Sec (11.4-14.6) 01/17/25 10:30
INR 1.03 01/17/25 10:30
Sodium 139 mmol/L (135-145) 01/18/25 05:59
Potassium 4.1 mmol/L (3.5-5.1) 01/18/25 05:59
BUN 13 mg/dl (9-20) 01/18/25 05:59
Glucose 106 mg/dl (70-99) H 01/18/25 05:59
Calcium 8.6 mg/dl (8.4-10.2) 01/18/25 05:59
Patient Allergies
multi vitamins Allergy (Uncoded 01/14/25 14:28)
Unknown
[2025-01-18] MEDS: OMNIPAQUE 50 ML PO (16:23)
[2025-01-18] MEDS: GAMMAGARD 300 IV (22:01)
[2025-01-19] VITALS (7 sets, daily range): BP systolic 145–169; BP diastolic 89–93
[2025-01-19] MEDS: MOTRIN 800 MG PO (01:50)
[2025-01-19 07:30] LABS: Hematocrit 40.5 % (39.0-52.0); Hemoglobin 13.9 g/dL (13.0-18.0); Mean Corp Hgb Conc. 34.3 g/dL (33.0-37.0); Mean Corpuscular Volume 91.4 fL (80.0-94.0); Platelet Count 161 10^3/uL (130-400); Red Cell Dist. Width 13.2 % (11.5-14.5)
[2025-01-19 07:51] LABS: Blood Urea Nitrogen 13 mg/dl (9-20); Calcium 8.7 mg/dl (8.4-10.2); Carbon Dioxide 28 mmol/L (22-30); Chloride 106 mmol/L (98-107); Estimated Creatinine Clearance 90 ml/min; Glucose 107 mg/dl (70-99); Potassium 4.4 mmol/L (3.5-5.1); Sodium 139 mmol/L (135-145); eGFR > 60.00
--- NOTE | 2025-01-19 08:48 | W.PN.HOSP.TC ---
Addendum entered and electronically signed by Rosette España MD 01/19/25 14:20:
I saw and evaluated the patient independently. I reviewed the resident�s note and agree with findings and plan as documented by Dr. Loving.
GENERAL: well developed, well nourished, male in no apparent distress
HEENT: NC/AT
HEART: regular rate and rhythm, +S1, +S2
LUNGS : clear to auscultation bilaterally
ABDOM: soft, nontender, nondistended, + bowel sounds
EXT: no cyanosis, clubbing, or edema
NEUROLOGIC: grossly intact--still does have evidence of memory deficit
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
(day 2)--apprec neuro/ID--s/p LP shows elevated protein but otherwise neg
presumed renal cell cancer--apprec urology and heme/onc--checking MRI abdomen--definitive treatment option (surgery vs cryoablation) to be determined by urology
Hyperlipidemia--pravastatin
Essential hypertension--atenolol
depression--escitalopram
DVT proph--SCDs
CODE STATUS--Full code
Original Note:
Today's Communication/Plan
-
CT chest abdomen pelvis positive for left renal mass concerning for RCC
Large hiatal hernia found on chest CT
Plan for MRI tomorrow
Continue IVIG
Patient and at bedside updated
Assessment / Plan
Assessment / Plan
Mr. Fenton is a 80-year-old male past medical history of TIA, hyperlipidemia, hypertension, depression, mild memory impairment presenting with sudden onset memory loss. Patient's noticed that patient had no recollection of what she just said to
him and he had no recollection of what happened evening before (01/13). She reports no head injury or trauma. No headache. He has no numbness or tingling or focal weakness. Head CT was normal with no signs of hemorrhage or ischemia. Brain MRI
concerning for abnormalities. Neurology consulted and ordered EEG. EEG showed left focal slowing concerning for encephalitis. LP ordered to evaluate. Started on empiric acyclovir 01/16. OT assessed patient's cognitive function which showed impairement
with BCAT of 30/50. LP positive for elevated proteins all other markers normal. Sample sent for further analysis. CSF analysis for meningitis/encephalitis negative awaiting acid-fast and fungal cultures. Acyclovir discontinued 01/17. IVIG started
01/18 for 5-day course. Patient's mentation slightly improved after IVIG. Zheng CT scan chest abdomen pelvis found renal mass on left kidney concerning for renal cell carcinoma. CT also found large hiatal hernia patient not reporting any GI symptoms.
Urology, heme-onc, and IR consulted for management of renal mass.
#Altered mental status
#memory impairment
likely transient global amnesia versus TIA versus seizure versus encephalitis
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
CT head normal
Brain MRI--Punctate foci of increased diffusion-weighted signal are often seen in association with transient global amnesia, usually smaller than in this patient, larger area of signal abnormality raises the possibility of signal intensity
abnormality from a seizure or encephalitis
CT abdomen positive for mass on left kidney concerning for RCC, large hiatal hernia present
No neurological deficits, less likely stroke
Urinalysis negative, less likely infection
Neurology consulted
would repeat MRI w/o and w/ contrast in a few weeks to confirm resolution
EEG showed left focal slowing concerning for encephalitis.
CSF WBC 1, RBC 19, glucose 60, protein 75. viral PCR negative.
pending fungal, acid fast, crypto, and [facility] autoimmune encephalopathy panel CS
Start IVIG for 5 days 01/18
nonsmoker but worked in [employer], exposed to chemicals
CT chest abdomen pelvis positive for kidney mass, large hiatal hernia
ID consult
started empiric acyclovir 01/16
Stop acyclovir 01/17
#Left kidney mass
mass measures 3.0 cm AP by 3.8 cm transverse by 2.9 cm craniocaudal, attenuation value of 113 Hounsfield units on initial portal venous phase imaging with attenuation value of 63 Hounsfield units on delayed equilibrium phase imaging. This mass very
likely represents renal cell carcinoma.
IR consulted
Heme-onc consulted
Urology consulted
MRI of mass tomorrow
# Hiatal hernia
Patient does not endorse any GI symptoms
Continue to monitor
#Diarrhea resolved
one episode
cont to monitor
consider Imodium if it continues
#Hyperlipidemia
pravastatin 40mg QD
#Essential hypertension
Persistently elevated blood pressures without pain
atenolol 100mg QD
Start Norvasc 5 mg daily
#depression
escitalopram 20mg QD
DVT prophylaxis
SCDs
CODE STATUS
Full code
Anticipated Discharge: > 48 hours
Subjective/Interval History
-
Patient and were seen at bedside. he reports feeling the same. Slept well no acute events overnight, has no complaints. Informed patient and of CT results and need of further testing, verbalized understanding. Mentation level seems
slightly improved, patient seemed cognitively faster. agrees he is close to baseline. Date of Service: January 19, 2025
Objective Data
-
Labs:
Laboratory Results
01/19/25
07:04
WBC 4.6 L
Hgb 13.9
Hct 40.5
Plt Count 161
Sodium 139
Potassium 4.4
Chloride 106
Carbon Dioxide 28
BUN 13
Creatinine 0.8
Glucose 107 H
Calcium 8.7
Vital Signs:
Vital Signs
Temp Pulse Resp BP Pulse Ox
97.7 F 60 16 150/92 96
01/19/25 07:55 01/19/25 07:55 01/19/25 07:55 01/19/25 07:55 01/19/25 07:55
I&O
01/18/25 01/19/25 01/20/25
06:59 06:59 06:59
Intake Total 1340 / 1340 1740 / 1740
Output Total 525 / 525 150 / 150
Balance 815 / 815 1590 / 1590
Review of Systems
-
Unable to obtain full review of systems at this time due to: Dementia
History Source: Patient
All other systems: Reviewed and negative
Constitutional: Reports No Symptoms; Denies Fever or Fatigue
EENT: Reports No Symptoms Reported; Denies Sore Throat or Runny Nose
Respiratory: Reports No Symptoms; Denies Cough or Trouble Breathing
Cardiac: Reports No Symptoms; Denies Chest Pain or Palpitations
Abdomen/GI: Reports No Symptoms; Denies Abdominal Pain, Nausea, Vomiting or Diarrhea
Genitourinary: Reports No Symptoms; Denies Dysuria
Musculoskeletal: Reports No Symptoms
Neuro: Denies Dizzy or Headache
Physical Exam
-
General: Well Developed, Well Nourished, No Apparent Distress and Comfortable
HEENT: Normocephalic and Atraumatic
Respiratory: Clear to Auscultation; Negative Wheezes or Crackles
Cardiac: Regular Rhythm and S1/S2; Negative Murmur
GI: Soft, Nontender, Nondistended and Normal Bowel Sounds
Musculoskeletal: No Clubbing, No Cyanosis and No Edema
Skin: Warm and Dry
Neuro: Awake, Alert and Oriented (To person place situation but not to time)
Psych: Calm and Confused; Negative Agitated
[2025-01-19] MEDS: NORVASC 5 MG PO (09:22)
--- NOTE | 2025-01-19 11:18 | W.PN.URO.CBU ---
Today's Communication / Plan
-
needs mri
Assessment / Plan
-
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
Diagnosis
-
Date of Service: January 19, 2025
-
Patient Diagnosis:
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
Post Op Day:
Subjective
-
no colic hematuria orpain
Objective
-
Vital Signs
Temp Pulse Resp BP Pulse Ox
97.7 F 60 16 150/92 96
01/19/25 07:55 01/19/25 07:55 01/19/25 07:55 01/19/25 07:55 01/19/25 07:55
Intake and Output
01/18/25 01/19/25 01/20/25
06:59 06:59 06:59
Intake Total 1340 / 1340 1740 / 1740
Output Total 525 / 525 150 / 150
Balance 815 / 815 1590 / 1590
Intake:
Oral fluids 1040 / 1040 1440 / 1440
IV piggybacks 300 / 300 300 / 300
Output:
Urine, Voided 525 / 525 150 / 150
Other:
Number of approximated MODERATE 3 3 2
amounts of urine
Laboratory Results
01/19/25 07:04
01/19/25 07:04
Review of Systems
-
: No Symptoms
Neurological: Dizzy, Weakness and Numbness
Physical Exam
-
General - well developed, well nourished, no acute distress
Chest - clear bilaterally
Abdomen - soft, non-tender, positive bowel sounds, no CVAT, no incisional pain or distention
Genitalia - normal
Rectal - normal
Skin - warm & dry with no rash
Neuro - AOx3, no motor deficits
Extremities - no clubbing, no cyanosis, no edema
Incision - clean, dry
Dressing - clean, dry, intact
Care Review
Data Reviewed
Discussed with: Hospitalist, Internal Medicine, IRAD and Family
CT Scan: Image Pers Reviewed
--- NOTE | 2025-01-19 13:56 | CON.ONC ---
Consultation
-
Date Consultation Requested: 01/19/25
Date Consultation Performed: 01/19/25
Requesting Provider: Dr Giuliano Herrera
Performing Provider: Dr Corie Bearden
Reason for Consultation: RCC, paraneoplastic encephalitis
Impression
Impression
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
Plan
Plan
Treatment of paraneoplastic syndromes includes definitive treatment of underlying malignancy.
Limited data in this situation to guide therapy
Needs either surgical resection or cryoablation. Will await MRI and defer to urology re: candidacy for surgery
Continue IVIG x5 doses, per neurology
Patient History
History of Present Illness
This is a 80yo who prestented 01/14 with acute change in mental status, and neurologic w/u suggestive of encephalitis. He was started on IVIG with improvement in symptoms. CT CAP showed a left kidney mass c/w RCC. MRI is pending.
Past-Medical/Surgical History
Past Medical History
Past Medical History: Reports Other (TIA, hyperlipidemia, hypertension, mild memory impairment)
Past Surgical History: Reports None
Social History
Tobacco: Other (chews tobacco)
Alcohol: None
Drug: None
Family History
Family History: Not pertinent
Patient Medication
�Medication �Instructions �Recorded �Confirmed �Last Taken �Type
aspirin 325 mg tablet 325 mg PO DAILY@1999 Blood Clot 01/14/25 01/14/25 01/13/25 History
Prevention/Tx
atenolol 100 mg tablet 100 mg PO DAILY@1999 Blood Pressure 01/14/25 01/14/25 01/13/25 History
bismuth subsalicylate 262 mg 524 mg PO DAILYPRN PRN diarrhea 01/14/25 01/14/25 2 Days Ago History
tablet (Pepto-Bismol) ~01/12/25
cholecalciferol (vitamin D3) 25 25 mcg PO DAILY@1999 Supplement 01/14/25 01/14/25 01/13/25 History
mcg (1,000 unit) tablet
escitalopram oxalate 20 mg tablet 20 mg PO DAILY@1999 Diabetes 01/14/25 01/14/25 01/13/25 History
ferrous sulfate 325 mg (65 mg 325 mg PO WE Supplement 01/14/25 01/14/25 01/09/25 History
iron) tablet (iron)
ibuprofen 200 mg tablet 800 mg PO BIDPRN PRN mild pain 01/14/25 01/14/25 01/13/25 History
omeprazole 20 mg capsule,delayed 20 mg PO DAILY@199901/14/25 01/14/25 01/13/25 History
release Gastrointestinal Issue
pravastatin 40 mg tablet 40 mg PO DAILY@1999 High 01/14/25 01/14/25 01/13/25 History
Cholesterol
Active Medications
Generic Name Dose Route Start Last Admin
Trade Name Freq PRN Reason Stop Dose Admin
Acetaminophen 650 mg 01/17/25 19:48
Acetaminophen 325 Mg Tablet PO 02/14/25 19:59
Q4HPRN PRN
IVIG pre medicate
Amlodipine Besylate 5 mg 01/19/25 08:00 01/19/25 09:22
Amlodipine 5 Mg Tablet PO 02/16/25 07:59 5 mg
DAILY DELMA Administration
Atenolol 100 mg 01/15/25 20:00 01/18/25 15:00
Atenolol 50 Mg Tablet PO 02/12/25 19:59 100 mg
DAILY@1999 DELMA Administration
Cholecalciferol 25 mcg 01/15/25 20:00 01/18/25 15:00
Cholecalciferol (Vitamin D3) 25 Mcg Tablet (1,000 Units) PO 02/12/25 19:59 25 mcg
DAILY@1999 DELMA Administration
Diphenhydramine HCl 25 mg 01/17/25 19:45
Diphenhydramine 25 Mg Capsule PO 02/14/25 19:44
Q4HPRN PRN
IVIG pre medicate
Escitalopram Oxalate 20 mg 01/15/25 20:00 01/18/25 14:59
Escitalopram 20 Mg Tablet PO 02/12/25 19:59 20 mg
DAILY@1999 [facility] Administration
Ferrous Sulfate 325 mg 01/16/25 08:00 01/16/25 08:50
Ferrous Sulfate 325 Mg Tablet PO 02/13/25 07:59 325 mg
WE DELMA Administration
Immune Globulin 30 grams in 300 mls @ 300 mls/hr 01/17/25 22:00 01/18/25 22:01
Gammagard IV 01/21/25 22:59 300 mls
DAILY@2199 [facility] Administration
Protocol
Per Protocol
Ibuprofen 800 mg 01/15/25 02:16 01/19/25 01:50
Ibuprofen 400 Mg Tablet PO 02/11/25 22:03 800 mg
BIDPRN PRN Administration
MILD PAIN
Pantoprazole Sodium 40 mg 01/15/25 20:00 01/18/25 15:00
Pantoprazole 40 Mg Delayed Release Tablet PO 02/12/25 19:59 40 mg
DAILY@1999 DEL[facility] Administration
Pravastatin Sodium 40 mg 01/15/25 20:00 01/18/25 15:00
Pravastatin 40 Mg Tablet PO 02/12/25 19:59 40 mg
DAILY@1999 [facility] Administration
Sodium Chloride 0 flush 01/14/25 22:00
Sodium Chloride 0.9% (Flush) Syringe IV 02/11/25 21:59
PER PROTOCOL DELMA
Review of Systems
-
All Other Systems: Not reviewed unless documented
Physical Exam
-
General: Well Developed, Well Nourished, No Apparent Distress and Conversant
Psych: Calm and Apparent Dementia
Labs
Lab Results
WBC 4.6 10^3/uL (4.8-10.8) L 01/19/25 07:04
RBC 4.43 10^6/uL (4.70-6.10) L 01/19/25 07:04
Hgb 13.9 g/dL (13.0-18.0) 01/19/25 07:04
Hct 40.5 % (39.0-52.0) 01/19/25 07:04
MCV 91.4 fL (80.0-94.0) 01/19/25 07:04
MCH 31.4 pg (27.0-31.0) H 01/19/25 07:04
MCHC 34.3 g/dL (33.0-37.0) 01/19/25 07:04
RDW 13.2 % (11.5-14.5) 01/19/25 07:04
Plt Count 161 10^3/uL (130-400) 01/19/25 07:04
MPV 9.8 fL (7.4-10.4) 01/19/25 07:04
Abs Immat Gran (auto) 0.0 10^3/uL (0-0.05) 01/15/25 06:23
Absolute Neuts (auto) 4.3 10^3/uL (1.4-6.5) 01/15/25 06:23
Absolute Lymphs (auto) 1.2 10^3/uL (1.2-3.4) 01/15/25 06:23
Absolute Monos (auto) 1.1 10^3/uL (0.1-0.6) H 01/15/25 06:23
Absolute Eos (auto) 0.1 10^3/uL (0-0.7) 01/15/25 06:23
Absolute Basos (auto) 0.0 10^3/uL (0-0.2) 01/15/25 06:23
Immature Gran % 0.3 % (0-0.5) 01/15/25 06:23
Neutrophils % 64.0 % (42.2-75.2) 01/15/25 06:23
Lymphocytes % 17.6 % (20.5-51.1) L 01/15/25 06:23
Monocytes % 16.1 % (1.7-9.3) H 01/15/25 06:23
Eosinophils % 1.5 % (0-6) 01/15/25 06:23
Basophils % 0.5 % (0-2) 01/15/25 06:23
Creatinine 0.8 mg/dL (0.7-1.3) 01/19/25 07:04
Vital Signs
Vital Signs
Temp Pulse Resp BP Pulse Ox
97.7 F 60 16 150/92 96
01/19/25 07:55 01/19/25 07:55 01/19/25 07:55 01/19/25 07:55 01/19/25 07:55
[2025-01-19 14:30] LABS: C.neoformans Antigen Negative (Negative)
--- NOTE | 2025-01-19 14:36 | W.PN.NEURO.1 ---
Today's Communication / Plan
-
complete 5 days of IVIG on 01/21 then outpatient neuro f/u re: antibodies, outpatient IVIG until the cancer is cured
Urology, IR, Onc consulted to determine cryoablation vs surgery
Neuro Assessment/Plan
Assessment
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
EEG showing left hemisphere focal slowing indicating structural/functional abnormality
CSF WBC 1, RBC 19, glucose 60, protein 75. viral PCR negative.
pending fungal, acid fast, crypto, and [facility] autoimmune encephalopathy panel CSF
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
Plan
complete 5 days of IVIG on 01/21 then outpatient neuro f/u re: antibodies, outpatient IVIG until the cancer is cured
Urology, IR, Onc consulted to determine cryoablation vs surgery
Subjective/Objective
Subjective Data
Date of Service: January 19, 2025
mental status improving, says not back to baseline
Objective Data
Vital Signs
Temp Pulse Resp BP Pulse Ox
36.5 C 60 16 150/92 96
01/19/25 07:55 01/19/25 07:55 01/19/25 07:55 01/19/25 07:55 01/19/25 07:55
Lab Results
01/19/25 07:04
01/19/25 07:04
PT 14.0 Sec (11.4-14.6) 01/17/25 10:30
INR 1.03 01/17/25 10:30
Sodium 139 mmol/L (135-145) 01/19/25 07:04
Potassium 4.4 mmol/L (3.5-5.1) 01/19/25 07:04
BUN 13 mg/dl (9-20) 01/19/25 07:04
Glucose 107 mg/dl (70-99) H 01/19/25 07:04
Calcium 8.7 mg/dl (8.4-10.2) 01/19/25 07:04
Patient Allergies
multi vitamins Allergy (Uncoded 01/14/25 14:28)
Unknown
[2025-01-19] MEDS: TYLENOL 650 MG PO ×2 (16:16→21:15)
[2025-01-19] MEDS: PRAVACHOL 40 MG PO (20:10)
[2025-01-19] MEDS: PROTONIX 40 MG PO (20:11)
[2025-01-19] MEDS: TENORMIN 100 MG PO (20:11)
[2025-01-19] MEDS: LEXAPRO 20 MG PO (20:11)
[2025-01-19] MEDS: VITAMIN D3 (cholecalciferol) 25 MCG PO (20:11)
[2025-01-19] MEDS: BENADRYL 25 MG PO (21:15)
[2025-01-19] MEDS: GAMMAGARD 300 IV (21:59)
[2025-01-20] VITALS (8 sets, daily range): BP systolic 120–173; BP diastolic 64–103
[2025-01-20 07:31] LABS: Hematocrit 41.7 % (39.0-52.0); Hemoglobin 14.1 g/dL (13.0-18.0); Mean Corp Hgb Conc. 33.8 g/dL (33.0-37.0); Mean Corpuscular Volume 91.6 fL (80.0-94.0); Platelet Count 153 10^3/uL (130-400); Red Cell Dist. Width 13.2 % (11.5-14.5)
[2025-01-20 07:48] LABS: Blood Urea Nitrogen 15 mg/dl (9-20); Calcium 8.4 mg/dl (8.4-10.2); Carbon Dioxide 24 mmol/L (22-30); Chloride 107 mmol/L (98-107); Estimated Creatinine Clearance 103 ml/min; Glucose 110 mg/dl (70-99); Potassium 4.3 mmol/L (3.5-5.1); Sodium 139 mmol/L (135-145); eGFR > 60.00
[2025-01-20] MEDS: NORVASC 5 MG PO (09:35)
--- NOTE | 2025-01-20 09:37 | W.PN.HOSP.TC ---
Addendum entered and electronically signed by Rosette España MD 01/20/25 15:28:
I saw and evaluated the patient independently. I reviewed the resident�s note and agree with findings and plan as documented by Dr. Loving.
GENERAL: well developed, well nourished, male in no apparent distress
HEENT: NC/AT
HEART: regular rate and rhythm, +S1, +S2
LUNGS : clear to auscultation bilaterally
ABDOM: soft, nontender, nondistended, + bowel sounds
EXT: no cyanosis, clubbing, or edema
NEUROLOGIC: grossly intact--still does have evidence of memory deficit
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
(day 4)--apprec neuro/ID--s/p LP shows elevated protein but otherwise neg
presumed renal cell cancer--apprec urology and heme/onc-- MRI abdomen confirms--definitive treatment option (surgery vs cryoablation is an option) to be determined by urology/IR
Hyperlipidemia--pravastatin
Essential hypertension--atenolol
depression--escitalopram
DVT proph--SCDs
CODE STATUS--Full code
Original Note:
Today's Communication/Plan
-
Increased Norvasc to 7.5
MRI done today, cryoablation is an option
Last dose of IVIG
Updated who is concerned about discharge
Assessment / Plan
Assessment / Plan
Mr. Fenton is a 80-year-old male past medical history of TIA, hyperlipidemia, hypertension, depression, mild memory impairment presenting with sudden onset memory loss. Patient's noticed that patient had no recollection of what she just said to
him and he had no recollection of what happened evening before (01/13). She reports no head injury or trauma. No headache. He has no numbness or tingling or focal weakness. Head CT was normal with no signs of hemorrhage or ischemia. Brain MRI
concerning for abnormalities. Neurology consulted and ordered EEG. EEG showed left focal slowing concerning for encephalitis. LP ordered to evaluate. Started on empiric acyclovir 01/16. OT assessed patient's cognitive function which showed impairement
with BCAT of 30/50. LP positive for elevated proteins all other markers normal. Sample sent for further analysis. CSF analysis for meningitis/encephalitis negative awaiting acid-fast and fungal cultures. Acyclovir discontinued 01/17. IVIG started
01/18 for 5-day course. Patient's mentation slightly improved after IVIG. Zheng CT scan chest abdomen pelvis found renal mass on left kidney concerning for renal cell carcinoma. CT also found large hiatal hernia patient not reporting any GI symptoms.
Urology, heme-onc, and IR consulted for management of renal mass. MRI done 01/20. Discussion between urology and IR for cryo surgery versus partial nephrectomy versus total nephrectomy. Patient will follow-up outpatient with urology. MRI findings
consistent with CT findings. IR thinks cryoablation is a possibility with preoperative embolization of mass.
#Altered mental status
#memory impairment
transient global amnesia
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
CT head normal
Brain MRI--Punctate foci of increased diffusion-weighted signal are often seen in association with transient global amnesia, usually smaller than in this patient, larger area of signal abnormality raises the possibility of signal intensity
abnormality from a seizure or encephalitis
CT abdomen positive for mass on left kidney concerning for RCC, large hiatal hernia present
No neurological deficits, less likely stroke
Urinalysis negative, less likely infection
Neurology consulted
would repeat MRI w/o and w/ contrast in a few weeks to confirm resolution
EEG showed left focal slowing concerning for encephalitis.
CSF WBC 1, RBC 19, glucose 60, protein 75. viral PCR negative.
pending fungal, acid fast, crypto, and [facility] autoimmune encephalopathy panel CS
Start IVIG for 5 days 01/17-01/21
nonsmoker but worked in [employer], exposed to chemicals
CT chest abdomen pelvis positive for kidney mass, large hiatal hernia
ID consult
started empiric acyclovir 01/16
Stop acyclovir 01/17
#Left kidney mass
mass measures 3.0 cm AP by 3.8 cm transverse by 2.9 cm craniocaudal, attenuation value of 113 Hounsfield units on initial portal venous phase imaging with attenuation value of 63 Hounsfield units on delayed equilibrium phase imaging. This mass very
likely represents renal cell carcinoma.
IR consulted
I do think we can offer cryoablation, but I think preoperative embolization of the mass will decrease risk of periprocedural hemorrhage
Heme-onc consulted
Urology consulted
MRI 01/20
There is a 3.3 cm enhancing mass within the posterior aspect of the lower pole the left kidney stranding towards the left renal hilum consistent with neoplasm and favored to represent renal cell carcinoma. The left renal vein appears patent.
# Hiatal hernia
Patient does not endorse any GI symptoms
Continue to monitor
#Diarrhea resolved
one episode
cont to monitor
consider Imodium if it continues
#Hyperlipidemia
pravastatin 40mg QD
#Essential hypertension
Persistently elevated blood pressures without pain
Possibly due to RCC mass
atenolol 100mg QD
Norvasc 7.5 mg daily
#depression
escitalopram 20mg QD
DVT prophylaxis
SCDs
CODE STATUS
Full code
Anticipated Discharge: 24 - 48 hours
Subjective/Interval History
-
Patient seen today at bedside. He reports doing well and feeling better, still has memory issues. Spoke with on phone to update her. She has concerns about discharge tomorrow states that patient is at about 75% from baseline. Does not feel
comfortable leaving him at home. Informed her about MRI findings and the need for urology follow-up. Informed her that surgery will not be performed at this hospitalization. Date of Service: January 20, 2025
Objective Data
-
Labs:
Laboratory Results
01/20/25
07:05
WBC 3.2 L
Hgb 14.1
Hct 41.7
Plt Count 153
Sodium 139
Potassium 4.3
Chloride 107
Carbon Dioxide 24
BUN 15
Creatinine 0.7
Glucose 110 H
Calcium 8.4
Vital Signs:
Vital Signs
Temp Pulse Resp BP Pulse Ox
97.6 F 60 16 173/103 95
01/20/25 08:28 01/20/25 08:28 01/20/25 08:28 01/20/25 08:28 01/20/25 08:28
I&O
01/19/25 01/20/25 01/21/25
06:59 06:59 06:59
Intake Total 1740 / 1740 1200 / 1200
Output Total 150 / 150 750 / 750
Balance 1590 / 1590 450 / 450
Review of Systems
-
Unable to obtain full review of systems at this time due to: Dementia
History Source: Patient
All other systems: Reviewed and negative
Constitutional: Reports No Symptoms; Denies Fever or Fatigue
EENT: Reports No Symptoms Reported; Denies Sore Throat or Runny Nose
Respiratory: Reports No Symptoms; Denies Cough or Trouble Breathing
Cardiac: Reports No Symptoms; Denies Chest Pain or Palpitations
Abdomen/GI: Reports No Symptoms; Denies Abdominal Pain, Nausea, Vomiting or Diarrhea
Genitourinary: Reports No Symptoms; Denies Dysuria
Musculoskeletal: Reports No Symptoms
Skin: Reports No Symptoms
Neuro: Reports No Symptoms
Physical Exam
-
General: Well Developed, Well Nourished, No Apparent Distress and Comfortable
HEENT: Normocephalic and Atraumatic
Respiratory: Clear to Auscultation; Negative Wheezes or Crackles
Cardiac: Regular Rhythm and S1/S2; Negative Murmur or Rub
GI: Soft, Nontender, Nondistended and Normal Bowel Sounds
Musculoskeletal: No Clubbing, No Cyanosis and No Edema
Skin: Warm and Dry
Neuro: Awake and Alert; Negative Oriented
Psych: Calm and Confused; Negative Agitated
--- NOTE | 2025-01-20 12:42 | W.PN.UPDATE ---
Update Note
Progress Note Update
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
- We performed LP on Mr. Fenton , significant improvement in mental status with IVIG tx
- Now asked regarding role of cryoablation of his left renal mass. The mass has an endophytic component and urology does not feel that partial nephrectomy is an option. Cryoablation vs partial nephrectomy on the table.
- The lesion measures 3.2 cm in greatest dimension, T1a. No findings of metastatic disease. It does have a central endophytic component with the superior margin of the tumor abutting several prominent vessels and the collecting system
- I do think we can offer cryoablation, but I think preoperative embolization of the mass will decrease risk of periprocedural hemorrhage and hopefully improved ablation margins. Would probably be a two day admission. Pt is stable for discharge
soon; we could not perform during this hospital admission. Following discharge, we will follow up with him and formalize a plan. Told patient I will also call his to discuss in further detail.
--- NOTE | 2025-01-20 12:46 | W.PN.URO.CBU ---
Today's Communication / Plan
-
PER HOSPITALIST AND IRAD
Assessment / Plan
-
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 however in speaking with irad it is their belief that cryo
ablation is possible as 2 stage procedure I agree with this aproach as my approach would require entire removal... Pt may go home and set up outpatient IRAD ablatio with Dr Palmira CARRINGTON
Diagnosis
-
Date of Service: January 20, 2025
-
Patient Diagnosis:
Post Op Day:
Patient Diagnosis:
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
Post Op Day:
Subjective
-
feels well
Objective
-
Vital Signs
Temp Pulse Resp BP Pulse Ox
97.6 F 60 16 173/103 95
01/20/25 08:28 01/20/25 08:28 01/20/25 08:28 01/20/25 08:28 01/20/25 08:28
Intake and Output
01/19/25 01/20/25 01/21/25
06:59 06:59 06:59
Intake Total 1740 / 1740 1200 / 1200
Output Total 150 / 150 750 / 750
Balance 1590 / 1590 450 / 450
Intake:
Oral fluids 1440 / 1440 1200 / 1200
IV piggybacks 300 / 300
Output:
Urine, Voided 150 / 150 750 / 750
Other:
Number of approximated MODERATE 3 3 1
amounts of urine
Number of approximated LARGE 1
amounts of urine
Laboratory Results
01/20/25 07:05
01/20/25 07:05
Review of Systems
-
: No Symptoms
Physical Exam
-
General - well developed, well nourished, no acute distress
Chest - clear bilaterally
Abdomen - soft, non-tender, positive bowel sounds, no CVAT, no incisional pain or distention
Genitalia - normal
Rectal - normal
Skin - warm & dry with no rash
Neuro - AOx3, no motor deficits
Extremities - no clubbing, no cyanosis, no edema
Incision - clean, dry
Dressing - clean, dry, intact
Care Review
Data Reviewed
Discussed with: GRISEL
MRI: Image Pers Reviewed
[2025-01-20] MEDS: MOTRIN 800 MG PO (16:50)
[2025-01-20] MEDS: LEXAPRO 20 MG PO (21:05)
[2025-01-20] MEDS: VITAMIN D3 (cholecalciferol) 25 MCG PO (21:05)
[2025-01-20] MEDS: PRAVACHOL 40 MG PO (21:05)
[2025-01-20] MEDS: PROTONIX 40 MG PO (21:05)
[2025-01-20] MEDS: TENORMIN 100 MG PO (21:12)
[2025-01-20] MEDS: GAMMAGARD 300 IV (22:36)
[2025-01-20] MEDS: TYLENOL 650 MG PO (22:45)
[2025-01-20] MEDS: BENADRYL 25 MG PO (22:45)
[2025-01-21] VITALS (9 sets, daily range): BP systolic 116–154; BP diastolic 42–110; PULSE 60–66; O2SAT 94–95
[2025-01-21 07:24] LABS: Hematocrit 40.2 % (39.0-52.0); Hemoglobin 14.0 g/dL (13.0-18.0); Mean Corp Hgb Conc. 34.8 g/dL (33.0-37.0); Mean Corpuscular Volume 90.1 fL (80.0-94.0); Platelet Count 165 10^3/uL (130-400); Red Cell Dist. Width 13.2 % (11.5-14.5)
[2025-01-21 08:11] LABS: Blood Urea Nitrogen 14 mg/dl (9-20); Calcium 8.4 mg/dl (8.4-10.2); Chloride 110 mmol/L (98-107); Glucose 103 mg/dl (70-99); Potassium 4.6 mmol/L (3.5-5.1); Sodium 137 mmol/L (135-145)
[2025-01-21 08:25] LABS: Carbon Dioxide 18 mmol/L (22-30); Estimated Creatinine Clearance 103 ml/min; eGFR > 60.00
[2025-01-21] MEDS: NORVASC 7.5 MG PO (08:38)
[2025-01-21] MEDS: MOTRIN 800 MG PO (08:41)
--- NOTE | 2025-01-21 09:19 | W.PN.ONC2 ---
Today's Communication / Plan
-
discharge planning
at bedside provided updates and questions answered
Impression
Impression
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
L renal mass, suspected RCC -IR/urology plans for preoperative embolization of the mass/cryoablation
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
Plan
Plan
Treatment of paraneoplastic syndromes includes definitive treatment of underlying malignancy.
Limited data in this situation to guide therapy
Continue IVIG x5 doses, per neurology
Subjective/Objective
Subjective
no new complaints
headache resolved
eager for discharge
Vital Signs:
Vital Signs
Temp Pulse Resp BP Pulse Ox
97.7 F 51 16 137/91 96
01/21/25 07:35 01/21/25 07:35 01/21/25 07:35 01/21/25 07:35 01/21/25 07:35
Lab Results:
Laboratory Data
WBC 3.3 10^3/uL (4.8-10.8) L 01/21/25 06:31
Hgb 14.0 g/dL (13.0-18.0) 01/21/25 06:31
Plt Count 165 10^3/uL (130-400) 01/21/25 06:31
PT 14.0 Sec (11.4-14.6) 01/17/25 10:30
INR 1.03 01/17/25 10:30
eGFR > 60.00 01/21/25 06:31
Physical Exam
HEENT: Moist Mucous Membranes; No Jaundice
Pulmonary: Other (unlabored)
GI: Soft
Extremities: Pulses Present; No Edema
--- NOTE | 2025-01-21 09:40 | W.PN.HOSP.TC ---
Today's Communication/Plan
-
Last dose of IVIG today
Patient medically stable for discharge
Assessment / Plan
Assessment / Plan
Mr. Fenton is a 80-year-old male past medical history of TIA, hyperlipidemia, hypertension, depression, mild memory impairment presenting with sudden onset memory loss. Patient's noticed that patient had no recollection of what she just said to
him and he had no recollection of what happened evening before (01/13). She reports no head injury or trauma. No headache. He has no numbness or tingling or focal weakness. Head CT was normal with no signs of hemorrhage or ischemia. Brain MRI
concerning for abnormalities. Neurology consulted and ordered EEG. EEG showed left focal slowing concerning for encephalitis. LP ordered to evaluate. Started on empiric acyclovir 01/16. OT assessed patient's cognitive function which showed impairement
with BCAT of 30/50. LP positive for elevated proteins all other markers normal. Sample sent for further analysis. CSF analysis for meningitis/encephalitis negative awaiting acid-fast and fungal cultures. Acyclovir discontinued 01/17. IVIG started
01/17 for 5-day course. Patient's mentation slightly improved after IVIG. Zheng CT scan chest abdomen pelvis found renal mass on left kidney concerning for renal cell carcinoma. CT also found large hiatal hernia patient not reporting any GI symptoms.
Urology, heme-onc, and IR consulted for management of renal mass. MRI done 01/20. Discussion between urology and IR for cryo surgery versus partial nephrectomy versus total nephrectomy. Patient will follow-up outpatient with urology. MRI findings
consistent with CT findings. IR thinks cryoablation is a possibility with preoperative embolization of mass. Patient finished IVIG on 01/21. Patient medically stable.
#Altered mental status
#memory impairment
transient global amnesia
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
CT head normal
Brain MRI--Punctate foci of increased diffusion-weighted signal are often seen in association with transient global amnesia, usually smaller than in this patient, larger area of signal abnormality raises the possibility of signal intensity
abnormality from a seizure or encephalitis
CT abdomen positive for mass on left kidney concerning for RCC, large hiatal hernia present
No neurological deficits, less likely stroke
Urinalysis negative, less likely infection
Neurology consulted
would repeat MRI w/o and w/ contrast in a few weeks to confirm resolution
EEG showed left focal slowing concerning for encephalitis.
CSF WBC 1, RBC 19, glucose 60, protein 75. viral PCR negative.
pending fungal, acid fast, crypto, and [facility] autoimmune encephalopathy panel CS
Start IVIG for 5 days 01/17-01/21
nonsmoker but worked in [employer], exposed to chemicals
CT chest abdomen pelvis positive for kidney mass, large hiatal hernia
ID consult
started empiric acyclovir 01/16
Stop acyclovir 01/17
#Left kidney mass
mass measures 3.0 cm AP by 3.8 cm transverse by 2.9 cm craniocaudal, attenuation value of 113 Hounsfield units on initial portal venous phase imaging with attenuation value of 63 Hounsfield units on delayed equilibrium phase imaging. This mass very
likely represents renal cell carcinoma.
IR consulted
I do think we can offer cryoablation, but I think preoperative embolization of the mass will decrease risk of periprocedural hemorrhage
Heme-onc consulted
Urology consulted
MRI 01/20
There is a 3.3 cm enhancing mass within the posterior aspect of the lower pole the left kidney stranding towards the left renal hilum consistent with neoplasm and favored to represent renal cell carcinoma. The left renal vein appears patent.
# Hiatal hernia
Patient does not endorse any GI symptoms
Continue to monitor
#Diarrhea resolved
one episode
cont to monitor
consider Imodium if it continues
#Hyperlipidemia
pravastatin 40mg QD
#Essential hypertension
Persistently elevated blood pressures without pain
Possibly due to RCC mass
atenolol 100mg QD
Norvasc 7.5 mg daily
Patient's blood pressure is improving after he addition of 2.5 mg of Norvasc in the a.m.
#depression
escitalopram 20mg QD
DVT prophylaxis
SCDs
CODE STATUS
Full code
Anticipated Discharge: Today
Subjective/Interval History
-
Mr. Fenton who was seen at bedside. He reports feeling good with mild headache. Informed him that he has as needed Tylenol for headache and encouraged him to order it with his nurse. Spoke with patient's daughter, sister yesterday. Discussed
that we do not 1 the resolution of his memory symptoms will occur if it will occur and the need for supervision cognitive therapy and cessation of driving. Talked with patient's who is amenable for discharge and therapy at [facility]'s choice. Date
of Service: January 21, 2025
Objective Data
-
Labs:
Laboratory Results
01/21/25
06:31
WBC 3.3 L
Hgb 14.0
Hct 40.2
Plt Count 165
Sodium 137
Potassium 4.6
Chloride 110 H
Carbon Dioxide 18 L
BUN 14
Creatinine 0.7
Glucose 103 H
Calcium 8.4
Vital Signs:
Vital Signs
Temp Pulse Resp BP Pulse Ox
97.7 F 51 16 137/91 96
01/21/25 07:35 01/21/25 07:35 01/21/25 07:35 01/21/25 07:35 01/21/25 07:35
I&O
01/20/25 01/21/25 01/22/25
06:59 06:59 06:59
Intake Total 1200 / 1200 1200 / 1200
Output Total 750 / 750 675 / 675
Balance 450 / 450 525 / 525
Review of Systems
-
Unable to obtain full review of systems at this time due to: Dementia
History Source: Patient
All other systems: Reviewed and negative
Constitutional: Reports No Symptoms; Denies Fever
EENT: Reports No Symptoms Reported; Denies Sore Throat or Runny Nose
Respiratory: Reports No Symptoms; Denies Cough or Trouble Breathing
Cardiac: Reports No Symptoms; Denies Chest Pain, Diaphoresis or Palpitations
Abdomen/GI: Reports No Symptoms; Denies Abdominal Pain, Nausea, Vomiting or Diarrhea
Genitourinary: Reports No Symptoms; Denies Dysuria
Musculoskeletal: Reports No Symptoms; Denies Joint Pain
Neuro: Reports Headache (Mild, started possibly after start of IVIG)
Physical Exam
-
General: Well Developed, Well Nourished, No Apparent Distress and Comfortable
HEENT: Normocephalic, Atraumatic and PERRLA
Respiratory: Clear to Auscultation; Negative Wheezes or Crackles
Cardiac: Regular Rhythm and S1/S2; Negative Murmur
GI: Soft, Nontender, Nondistended and Normal Bowel Sounds
Musculoskeletal: No Clubbing, No Cyanosis and No Edema
Skin: Warm and Dry
Neuro: Awake, Alert, No Motor Deficits and Nonfocal/Grossly Intact; Negative Oriented (Oriented to person, situation, month but not place, year)
Psych: Calm
--- NOTE | 2025-01-21 09:45 | CM ---
PT/OT rec home health
ST for cognition
Spoke with Lizzy [phone] and referral in [facility] for [facility]
spoke with Angelia nelson
Spoke with Carri doe at [facility]
PLAN: Home with [facility] fax #: [phone]
--- NOTE | 2025-01-21 10:50 | W.PN.URO.CBU ---
Today's Communication / Plan
-
home when ok by hospitalist
Assessment / Plan
-
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 however in speaking with irad it is their belief that cryo
ablation is possible as 2 stage procedure I agree with this aproach as my approach would require entire removal... Pt may go home and set up outpatient IRAD ablatio with Dr Palmira CARRINGTON
Diagnosis
-
Date of Service: January 21, 2025
-
Patient Diagnosis:
Post Op Day:
Patient Diagnosis:
Post Op Day:
Patient Diagnosis:
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
Post Op Day:
Subjective
-
awaiting irad for discjharge
Objective
-
Vital Signs
Temp Pulse Resp BP Pulse Ox
97.7 F 51 16 137/91 96
01/21/25 07:35 01/21/25 07:35 01/21/25 07:35 01/21/25 07:35 01/21/25 07:35
Intake and Output
01/20/25 01/21/25 01/22/25
06:59 06:59 06:59
Intake Total 1200 / 1200 1200 / 1200
Output Total 750 / 750 675 / 675
Balance 450 / 450 525 / 525
Intake:
Oral fluids 1200 / 1200 1200 / 1200
Output:
Urine, Voided 750 / 750 675 / 675
Other:
Number of approximated MODERATE 3 3
amounts of urine
Number of approximated LARGE 1
amounts of urine
Laboratory Results
01/21/25 06:31
07/07/25 06:31
Review of Systems
-
: No Symptoms
Physical Exam
-
General - well developed, well nourished, no acute distress
Chest - clear bilaterally
Abdomen - soft, non-tender, positive bowel sounds, no CVAT, no incisional pain or distention
Genitalia - normal
Rectal - normal
Skin - warm & dry with no rash
Neuro - AOx3, no motor deficits
Extremities - no clubbing, no cyanosis, no edema
Incision - clean, dry
Dressing - clean, dry, intact
Care Review
Data Reviewed
Discussed with: Nursing
[2025-01-21] MEDS: TENORMIN 100 MG PO (21:10)
[2025-01-21] MEDS: VITAMIN D3 (cholecalciferol) 25 MCG PO (21:10)
[2025-01-21] MEDS: PRAVACHOL 40 MG PO (21:10)
[2025-01-21] MEDS: LEXAPRO 20 MG PO (21:10)
[2025-01-21] MEDS: PROTONIX 40 MG PO (21:10)
[2025-01-21] MEDS: GAMMAGARD 300 IV (21:14)
[2025-01-22] MEDS: MOTRIN 800 MG PO ×2 (02:08→12:10)
[2025-01-22 07:33] VITALS: BP 151/84
[2025-01-22] MEDS: NORVASC 7.5 MG PO (07:34)
--- NOTE | 2025-01-22 08:53 | W.PN.HOSP.TC ---
Today's Communication/Plan
-
Patient medically stable for discharge
Assessment / Plan
Assessment / Plan
Mr. Fenton is a 80-year-old male past medical history of TIA, hyperlipidemia, hypertension, depression, mild memory impairment presenting with sudden onset memory loss. Patient's noticed that patient had no recollection of what she just said to
him and he had no recollection of what happened evening before (01/13). She reports no head injury or trauma. No headache. He has no numbness or tingling or focal weakness. Head CT was normal with no signs of hemorrhage or ischemia. Brain MRI
concerning for abnormalities. Neurology consulted and ordered EEG. EEG showed left focal slowing concerning for encephalitis. LP ordered to evaluate. Started on empiric acyclovir 01/16. OT assessed patient's cognitive function which showed impairement
with BCAT of 30/50. LP positive for elevated proteins all other markers normal. Sample sent for further analysis. CSF analysis for meningitis/encephalitis negative awaiting acid-fast and fungal cultures. Acyclovir discontinued 01/17. IVIG started
01/17 for 5-day course. Patient's mentation slightly improved after IVIG. Zheng CT scan chest abdomen pelvis found renal mass on left kidney concerning for renal cell carcinoma. CT also found large hiatal hernia patient not reporting any GI symptoms.
Urology, heme-onc, and IR consulted for management of renal mass. MRI done 01/20. Discussion between urology and IR for cryo surgery versus partial nephrectomy versus total nephrectomy. Patient will follow-up outpatient with urology. MRI findings
consistent with CT findings. IR thinks cryoablation is a possibility with preoperative embolization of mass. Patient finished IVIG on 01/21. Patient medically stable.
#Altered mental status
#memory impairment
transient global amnesia
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
CT head normal
Brain MRI--Punctate foci of increased diffusion-weighted signal are often seen in association with transient global amnesia, usually smaller than in this patient, larger area of signal abnormality raises the possibility of signal intensity
abnormality from a seizure or encephalitis
CT abdomen positive for mass on left kidney concerning for RCC, large hiatal hernia present
No neurological deficits, less likely stroke
Urinalysis negative, less likely infection
Neurology consulted
would repeat MRI w/o and w/ contrast in a few weeks to confirm resolution
EEG showed left focal slowing concerning for encephalitis.
CSF WBC 1, RBC 19, glucose 60, protein 75. viral PCR negative.
pending fungal, acid fast, crypto, and [facility] autoimmune encephalopathy panel CS
Start IVIG for 5 days 01/17-01/21
nonsmoker but worked in [employer], exposed to chemicals
CT chest abdomen pelvis positive for kidney mass, large hiatal hernia
ID consult
started empiric acyclovir 01/16
Stop acyclovir 01/17
#Left kidney mass
mass measures 3.0 cm AP by 3.8 cm transverse by 2.9 cm craniocaudal, attenuation value of 113 Hounsfield units on initial portal venous phase imaging with attenuation value of 63 Hounsfield units on delayed equilibrium phase imaging. This mass very
likely represents renal cell carcinoma.
IR consulted
I do think we can offer cryoablation, but I think preoperative embolization of the mass will decrease risk of periprocedural hemorrhage
Heme-onc consulted
Urology consulted
MRI 01/20
There is a 3.3 cm enhancing mass within the posterior aspect of the lower pole the left kidney stranding towards the left renal hilum consistent with neoplasm and favored to represent renal cell carcinoma. The left renal vein appears patent.
# Hiatal hernia
Patient does not endorse any GI symptoms
Continue to monitor
#Diarrhea resolved
one episode
cont to monitor
consider Imodium if it continues
#Hyperlipidemia
pravastatin 40mg QD
#Essential hypertension
Persistently elevated blood pressures without pain
Possibly due to RCC mass
atenolol 100mg QD
Norvasc 7.5 mg daily
Patient's blood pressure is improving after he addition of 2.5 mg of Norvasc in the a.m.
#depression
escitalopram 20mg QD
DVT prophylaxis
SCDs
CODE STATUS
Full code
Anticipated Discharge: Today
Subjective/Interval History
-
Patient was resting in bed. He reports no complaints, mild headache last night that went away. Date of Service: January 22, 2025
Objective Data
-
Vital Signs:
Vital Signs
Temp Pulse Resp BP Pulse Ox
97.8 F 64 18 151/84 98
01/22/25 07:33 01/22/25 07:34 01/22/25 07:33 01/22/25 07:34 01/22/25 07:40
I&O
01/21/25 01/22/25 01/23/25
06:59 06:59 06:59
Intake Total 1200 / 1200 240 / 240
Output Total 675 / 675 475 / 475
Balance 525 / 525 -235 / -235
Review of Systems
-
Unable to obtain full review of systems at this time due to: Dementia
History Source: Patient
All other systems: Reviewed and negative
Constitutional: Reports No Symptoms; Denies Fever or Fatigue
EENT: Reports No Symptoms Reported; Denies Sore Throat or Runny Nose
Respiratory: Reports No Symptoms; Denies Cough or Trouble Breathing
Cardiac: Reports No Symptoms; Denies Chest Pain or Palpitations
Abdomen/GI: Reports No Symptoms; Denies Abdominal Pain, Nausea, Vomiting or Diarrhea
Genitourinary: Reports No Symptoms; Denies Dysuria
Musculoskeletal: Reports No Symptoms
Skin: Reports No Symptoms
Neuro: Reports No Symptoms; Denies Dizzy or Headache
Physical Exam
-
General: Well Developed, Well Nourished, No Apparent Distress and Comfortable
HEENT: Normocephalic and Atraumatic
Respiratory: Clear to Auscultation; Negative Wheezes or Crackles
Cardiac: Regular Rhythm and S1/S2; Negative Murmur or Rub
GI: Soft, Nontender, Nondistended and Normal Bowel Sounds
Musculoskeletal: No Clubbing, No Cyanosis and No Edema
Skin: Warm and Dry
Neuro: Awake, Alert, No Motor Deficits, Nonfocal/Grossly Intact and No Sensory Deficits; Negative Oriented (Oriented to self place situation but not to time)
Psych: Calm
--- NOTE | 2025-01-22 10:59 | CM ---
Patient medically stable for d/c today. [facility] accepted for services
Met w/ patient bedside, informed of d/c today. Per patient, spouse will transport home
IMM verbally reviewed, copy provided, copy on chart
No other CM needs identified at this time
Plan: Home w/ [facility]
[2025-01-22 13:47] VITALS: BP 161/55
[2025-01-22 13:54] VITALS: BP 148/65
--- NOTE | 2025-01-22 17:34 | W.DCSUMMARY ---
Documented by User: Jessie Loving MD, Resident 01/22/25 17:43
Discharge Summary
Discharge Data
Date of Admission: 01/15/25
Date of Discharge: 01/22/25
-
Pending Results: Yes
Additional Pending Results:
CSF fungal culture follow-up in 4 to 5 weeks
Hospital Course
Discharging Physician : Dr. Vaca, Dr. Loving
Disposition : Home
Primary care physician : Virginia Lopez
Principal Discharge diagnosis :
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
Chronic Discharge diagnosis :
Essential hypertension
TIA
Hyperlipidemia
Mild memory impairment
Hospital Course :
Mr. Fenton is a 80-year-old male past medical history of TIA, hyperlipidemia, hypertension, depression, mild memory impairment presenting with sudden onset memory loss. Patient's noticed that patient had no recollection of what she just said to
him and he had no recollection of what happened evening before (01/13). She reports no head injury or trauma. No headache. He has no numbness or tingling or focal weakness. Head CT was normal with no signs of hemorrhage or ischemia. Brain MRI
concerning for abnormalities. Neurology consulted and ordered EEG. EEG showed left focal slowing concerning for encephalitis. LP ordered to evaluate. Started on empiric acyclovir 01/16. OT assessed patient's cognitive function which showed impairement
with BCAT of 30/50. LP positive for elevated proteins all other markers normal. Sample sent for further analysis. CSF analysis for meningitis/encephalitis negative awaiting acid-fast and fungal cultures. Acyclovir discontinued 01/17. IVIG started
01/17 for 5-day course. Patient's mentation slightly improved after IVIG. Zheng CT scan chest abdomen pelvis found renal mass on left kidney concerning for renal cell carcinoma. CT also found large hiatal hernia patient not reporting any GI symptoms.
Urology, heme-onc, and IR consulted for management of renal mass. MRI done 01/20. Discussion between urology and IR for cryo surgery versus partial nephrectomy versus total nephrectomy. Patient will follow-up outpatient with urology. MRI findings
consistent with CT findings. IR thinks cryoablation is a possibility with preoperative cryoablation, embolization of mass. Patient finished IVIG on 01/21. Added amlodipine to patient's hypertension regimen due to persistently elevated pressures,
possibly due to RCC mass. BP is under control, patient medically stable for discharge.
Important imaging findings :
Abdominal MRI 01/20
IMPRESSION:
There is a 3.3 cm enhancing mass within the posterior aspect of the lower pole the left kidney stranding towards the left renal hilum consistent with neoplasm and favored to represent renal cell carcinoma. The left renal vein appears patent.
Large hiatal hernia.
Trace right pleural effusion with right basilar atelectasis.
CT chest abdomen pelvis 01/18
IMPRESSION: There is an enhancing mass arising in the lower pole the left kidney, which very likely represents renal cell carcinoma.
The left renal vein and IVC are patent. No significantly enlarged abdominal or pelvic lymph nodes are identified.
Large hiatal hernia/partially intrathoracic stomach. The posterior gastric fundus and upper body within the left lower hemithorax is not fully distended. Gastric wall thickening in this region is possible. As warranted, consideration for further
evaluation with upper endoscopy.
Significant enlargement of the prostate gland extending into the base of the bladder. Estimated prostate volume of 249 cc. Bladder wall is trabeculated with multiple small diverticula.
Bony degenerative changes as described. No evidence for bony metastatic disease.
Brain MRI 01/15
IMPRESSION: Contiguous region of increased diffusion-weighted signal, and increased T2 and FLAIR signal involving the medial left temporal lobe as described.
Patient has a history of transient global amnesia. Punctate foci of increased diffusion-weighted signal are often seen in association with transient global amnesia, usually smaller than in this patient.
This larger area of signal abnormality raises the possibility of signal intensity abnormality from a seizure, and please correlate clinically.
Encephalitis is a differential consideration but felt to be less likely based on morphology and distribution.
Mild to moderate diffuse atrophy. Mild to moderate T2 and FLAIR white matter hyperintensities, predominantly periventricular. These hyperintensities are commonly seen with aging and are usually attributed to small vessel ischemic disease. They have
not been shown to correlate with a focal neurologic deficit.
Head CT 01/14
IMPRESSION:
No acute intracranial abnormality.
Procedure findings :
Meningitis/encephalitis panel 01/17
Negative
Lumbar puncture 01/17
IMPRESSION:
Technically successful fluoroscopically guided lumbar puncture.
ECG 01/14
SINUS BRADYCARDIA
RIGHT BUNDLE BRANCH BLOCK
LEFT ANTERIOR FASCICULAR BLOCK
BIFASCICULAR BLOCK
ABNORMAL ECG
NO PREVIOUS ECGS AVAILABLE
Discharge Plan
-
Patient Disposition: Home (Routine Discharge)
Discharge Diagnosis/Procedures: altered mental status, transient global amnesia, left kidney mass, Renal cell carcinoma
Condition: Good
Diet: No restrictions and As tolerated
Activity: As tolerated
Driving Restrictions: No driving
Bathing Restrictions: None
Referrals:
Kevyn Quintanilla MD [Active, Radiology]
Richard Harper MD [Active, Urology]
Referral Note: call Dr Harper, urologist , [phone] for kidney cancer follow up after treatment by radiology .
Virginia Lopez DO [Family Provider, Internal Medicine] - in less than 1 week
Additional Discharge Medication Instructions: Amlodipine 7.5 mg daily
Prescriptions:
New
amlodipine 5 mg Tablet
7.5 mg PO DAILY Qty: 30 0RF
Continued
aspirin 325 mg Tablet
325 mg PO DAILY@1999
pravastatin 40 mg tablet
40 mg PO DAILY@1999
atenolol 100 mg tablet
100 mg PO DAILY@1999
ferrous sulfate [iron] 325 mg (65 mg iron) Tablet
325 mg PO WE
ibuprofen 200 mg Tablet
800 mg PO BIDPRN PRN (Reason: mild pain)
omeprazole 20 mg capsule,delayed release(DR/EC)
20 mg PO DAILY@1999
Pepto-Bismol 262 mg Tablet
524 mg PO DAILYPRN PRN (Reason: diarrhea)
escitalopram oxalate 20 mg tablet
20 mg PO DAILY@1999
cholecalciferol (vitamin D3) 25 mcg (1,000 unit) Tablet
25 mcg PO DAILY@1999
Discharge Orders:
Discharge Patient (As Directed); Ordered 01/22/25
Ordered By: Jessie Loving
Discharge Date and Time
Discharge Date/Time: 01/22/25 14:03
Print Language: UGANDAN

Documented by User: Roni Vaca DO 01/23/25 09:37
Discharge Summary
Discharge Data
Date of Admission: 01/15/25
Date of Discharge: 01/22/25
Total time spent discharging patient (in min): 35
Discharge Plan
-
Patient Disposition: Home (Routine Discharge)
Discharge Diagnosis/Procedures: altered mental status, transient global amnesia, left kidney mass, Renal cell carcinoma
Condition: Good
Diet: No restrictions and As tolerated
Activity: As tolerated
Driving Restrictions: No driving
Bathing Restrictions: None
Referrals:
Kevyn Quintanilla MD [Active, Radiology]
Richard Harper MD [Active, Urology]
Referral Note: call Dr Harper, urologist , [phone] for kidney cancer follow up after treatment by radiology .
Virginia Lopez DO [Family Provider, Internal Medicine] - in less than 1 week
Additional Discharge Medication Instructions: Amlodipine 7.5 mg daily
Prescriptions:
New
amlodipine 5 mg Tablet
7.5 mg PO DAILY Qty: 30 0RF
Continued
aspirin 325 mg Tablet
325 mg PO DAILY@1999
pravastatin 40 mg tablet
40 mg PO DAILY@1999
atenolol 100 mg tablet
100 mg PO DAILY@1999
ferrous sulfate [iron] 325 mg (65 mg iron) Tablet
325 mg PO WE
ibuprofen 200 mg Tablet
800 mg PO BIDPRN PRN (Reason: mild pain)
omeprazole 20 mg capsule,delayed release(DR/EC)
20 mg PO DAILY@1999
Pepto-Bismol 262 mg Tablet
524 mg PO DAILYPRN PRN (Reason: diarrhea)
escitalopram oxalate 20 mg tablet
20 mg PO DAILY@1999
cholecalciferol (vitamin D3) 25 mcg (1,000 unit) Tablet
25 mcg PO DAILY@1999
Discharge Orders:
Discharge Patient (As Directed); Ordered 01/22/25
Ordered By: Jessie Loving
Discharge Date and Time
Discharge Date/Time: 01/22/25 14:03
Print Language: UGANDAN
== END 2025-01-22 14:03 | disposition home health service (06) | DRG 686 ==
LOC: 4 EAST ACU 16:51
PROVIDERS: Emergency Medicine; Internal Medicine; Radiology Diagnostic Radiology; Student in an Organized Health Care Education/Training Program; ADMITTING PHYSICIAN Hospitalist; ATTENDING PHYSICIAN Internal Medicine; CONSULT PHYSICIAN Internal Medicine Hematology & Oncology; CONSULT PHYSICIAN Psychiatry & Neurology Clinical Neurophysiology; CONSULT PHYSICIAN Specialist; EMERGENCY PHYSICIAN Student in an Organized Health Care Education/Training Program; FAMILY PHYSICIAN Internal Medicine; OTHER PHYSICIAN Internal Medicine Infectious Disease
PROC: 009U3ZX Drainage of Spinal Canal, Percutaneous Approach, Diagnostic (ICD-10-PCS; 2025-01-17)
PROC: 30233S1 Transfusion of Nonautologous Globulin into Peripheral Vein, Percutaneous Approach (ICD-10-PCS; 2025-01-17)
DX: C64.2 Malignant neoplasm of left kidney, except renal pelvis (principal); G05.3 Encephalitis and encephalomyelitis in diseases classified elsewhere; G45.4 Transient global amnesia; I10 Essential (primary) hypertension; E78.5 Hyperlipidemia, unspecified; G31.84 Mild cognitive impairment of uncertain or unknown etiology; K44.9 Diaphragmatic hernia without obstruction or gangrene; R19.7 Diarrhea, unspecified; F32.A Depression, unspecified; Z86.73 Personal history of transient ischemic attack (TIA), and cerebral infarction without residual deficits; Z72.0 Tobacco use
CPT/HCPCS: 62328; 70450; 70551; 71260; 74177; 74183; 80048; 80053; 81003; 82945; 84157; 85025; 85027; 85610; 87070; 87102; 87116; 87327; 87483; 89051; 93005; 95816; 97116; 97162; 97166; 97530; 97535; 99285; A9575; J1569; Q9967

== ENCOUNTER → 2025-01-29 10:13 | Outpatient (REF) | payer OTHER, SELFPAY ==
[2025-01-29 13:40] LABS: Folate 11.0 ng/ml (2.76-20); Vitamin B12 474 pg/ml (239-931)
== END ==
LOC: HWLAB 10:13
PROVIDERS: ATTENDING PHYSICIAN Registered Nurse Critical Care Medicine; FAMILY PHYSICIAN Internal Medicine
DX: E53.8 Deficiency of other specified B group vitamins (principal); G45.4 Transient global amnesia
CPT/HCPCS: 36415; 82607; 82746; 84443; 85652

== ENCOUNTER → 2025-01-31 08:57 | Outpatient (REF) | payer MEDICARE, OTHER, SELFPAY ==
--- NOTE | 2025-02-04 15:31 | EEG.RPT ---
Electroencephalogram Report
Recording
Date of EE01/31/25
Type of EEG: Ambulatory
Length of EEG recordin day 30 minutes
Done with Video Recording: No
Patient Status: Outpatient
Recording Conditions: Awake, Drowsy and Asleep
Hyperventilation Performed: No
Photic Stimulation Performed: Yes
Report
24 HOUR AMBULATORY EEG SUMMARY
24 HOUR AMBULATORY EEG CONCLUSION(S):
Unremarkable EEG for age
CLINICAL CORRELATION:
A normal EEG may not rule out a diagnosis of epilepsy.
The patient�s logs did not indicate clinical symptoms.
Consideration for multiple day monitoring may be given.
Clinical correlation is advised.
METHODS:
A 21 channel digitized electroencephalogram (EEG) was initiated in the Clinical Neurophysiology Laboratory. The patient wore the device outside of the laboratory and returned after 24 hours for electrode and recorder removal. The 10/20
international system of electrode placement was used with bipolar electrode montage recorded. ECG was monitored. The [employer] quantitative EEG analysis system was utilized.
IMPRESSION(S):
Quality
Fair becoming poor by end of study
Background
Maximal wakefulness: alpha
There was a normal anterior-posterior voltage gradient. With eye opening the background activity changed. No significant asymmetries of background activity noted.
Sleep
Drowsiness was suggested by slowing of the background rhythms
Stage I sleep was recorded
Stage 2 sleep was recorded
ECG
Unremarkable
== END ==
LOC: EEG 08:57
PROVIDERS: ATTENDING PHYSICIAN Registered Nurse Critical Care Medicine; FAMILY PHYSICIAN Internal Medicine
DX: R41.3 Other amnesia (principal)
CPT/HCPCS: 95708

== ENCOUNTER → 2025-02-10 08:30 | Outpatient (REF) | payer OTHER, SELFPAY | LOC: MRI 08:30 | PROVIDERS: ATTENDING PHYSICIAN Registered Nurse Critical Care Medicine; FAMILY PHYSICIAN Internal Medicine | DX: G45.4 Transient global amnesia (principal); R90.89 Other abnormal findings on diagnostic imaging of central nervous system | CPT/HCPCS: 70553; A9575 ==

== ENCOUNTER 2025-02-20 11:43 | Inpatient (IN) | payer OTHER, SELFPAY ==
[2025-02-20] VITALS (9 sets, daily range): BP systolic 45–172; BP diastolic 85–102; BMI 31.0
--- NOTE | 2025-02-20 16:58 | CM ---
PCM met with Austin at bedside to complete IA. He lives with in an apartment at [facility]. indicated that he was normally independent but uses a CPAP machine at home. [facility] in the past.
Patient has had some issues with memory in the past and his sister was just diagnosed with vascular dementia. Patient reports that he was independent and did not use any other DME. CM will continue to follow for discharge planning needs.
Plan: Consider resumption of [facility]; watch for SNF needs.
[2025-02-20] MEDS: LEXAPRO 20 MG PO (21:13)
[2025-02-20] MEDS: PRAVACHOL 40 MG PO (21:13)
[2025-02-20] MEDS: TENORMIN 100 MG PO (21:14)
[2025-02-21] VITALS (10 sets, daily range): BP systolic 60–159; BP diastolic 72–94; BMI 31.9
[2025-02-21] MEDS: ANCEF 10 IV (08:04)
--- NOTE | 2025-02-21 16:40 | W.PN.UPDATE ---
Update Note
Progress Note Update
- Doing well post cryoablation of L renal mass with biopsy performed early this morning.
- Resting comfortably in bed, denies pain. L back examined. Dressing are clean and non-tender to palpation. No signs of bleeding. Denies hematuria.
- Discussed with Angelia.
- Plan for home discharge in the morning. Follow up CT in 3 months and follow up with urology.
[2025-02-21] MEDS: LEXAPRO 20 MG PO (20:06)
[2025-02-21] MEDS: TENORMIN 100 MG PO (20:07)
[2025-02-21] MEDS: PRAVACHOL 40 MG PO (20:07)
--- NOTE | 2025-02-21 23:41 | PTCARENOTE ---
Pt found out of room in hallway. Unsteady at times and with one sock on. Pt states he was heading to bathroom. This RN reminded patient that there is a bathroom in patient's room. Discussed fall risk with patient and reminded patient to use call
[place] prior to getting out of bed. Pt verbalized understanding. Pt again found outside of room to talk with staff. Pt escorted back to room and bed alarm in place at this time.
[2025-02-22 01:17] VITALS: BP 116/67
--- NOTE | 2025-02-22 07:21 | W.PN.UPDATE ---
Update Note
Progress Note Update
80-year-old male past medical history of TIA, hyperlipidemia, hypertension, mild memory impairment presenting with sudden onset memory loss this morning. On his recent admission he was found to have a left renal mass. He underwent renal artery
embolization on Tuesday then a renal biopsy and cryoablation. He is feeling well this morning. He is voiding spontaneously and tolerating POs. He denies any complaints.
He denies fever, chills, weight loss, flank pain, urinary complaints, hematuria, nausea, vomiting or abdominal pain.
Medical History
Past Medical History
TIA, hyperlipidemia, hypertension, mild memory impairment
Past Surgical History: Reports None
Social History
Tobacco:chews tobacco
Lives with
Allergies
Allergy/AdvReac Type Severity Reaction Status Date / Time
multi vitamins Allergy Unknown Uncoded 01/14/25 14:28
Social History: Tobacco Use (chews) Lives with
Medication:Current medications were documented at the time of this evaluation including names, dosages, frequency and route
atenolol 100 mg tablet 100 mg PO DAILY@1999 Blood Pressure 01/14/25
bismuth subsalicylate 262 mg tablet (Pepto-Bismol) 524 mg PO DAILYPRN PRN diarrhea 01/14/25
cholecalciferol (vitamin D3) 25 mcg (1,000 unit) tablet 25 mcg PO DAILY@1999 Supplement 01/14/25
escitalopram oxalate 20 mg tablet 20 mg PO DAILY@1999 Diabetes 01/14/25
ferrous sulfate 325 mg (65 mg iron) tablet (iron) 325 mg PO WE Supplement 01/14/25
ibuprofen 200 mg tablet 800 mg PO BIDPRN PRN mild pain 01/14/25
omeprazole 20 mg capsule,delayed release 20 mg PO DAILY@1999 Gastrointestinal Issue 01/14/25
pravastatin 40 mg tablet 40 mg PO DAILY@1999 High Cholesterol 01/14/25
aspirin 81 mg tablet 81 mg PO DAILY 02/20/25
zinc 100 mg tablet 100 mg PO DAILY 02/20/25
Allergies and Reactions
Allergy/AdvReac Type Severity Reaction Status Date / Time
multivitamin Allergy Unknown Uncoded 02/20/25 07:55
Pertinent Physical Exam
WNWD 80 yo male who is awake in alert in NAD lying in bed. Color is good. Skin warma nd dry. Neck supple. HEart regular. Lungs CTA. Abdomen is soft and nontender with bowel sounds. No flank pain. Dressing CDI. No hematoma. No LE edema
A/P:
80-year-old with a left renal mass who underwent renal artery embolization on Tuesday then a renal biopsy and cryoablation on .
He is feeling well today
Tolerating POs
Voiding spontaneously
Plan to D/C home today
Follow up with urology in [address] scan in 3 months
May continue all home medications
\\
[2025-02-22 07:30] VITALS: BP 120/72
--- NOTE | 2025-02-22 08:45 | CM ---
CM following for discharge planning. Pt is ambulatory in his room, no indication of SNF or VN needs at this time.
Plan: Discharge to [facility].
[2025-02-22 12:26] VITALS: BP 124/70
== END 2025-02-22 12:57 | disposition home or self-care (01) | DRG 658 ==
LOC: 3 WEST ACU 11:43
PROVIDERS: ADMITTING PHYSICIAN Radiology Diagnostic Radiology; FAMILY PHYSICIAN Internal Medicine; REFERRING PHYSICIAN Specialist
PROC: 04LA3DZ Occlusion of Left Renal Artery with Intraluminal Device, Percutaneous Approach (ICD-10-PCS; 2025-02-20)
PROC: 0T513ZZ Destruction of Left Kidney, Percutaneous Approach (ICD-10-PCS; 2025-02-20)
PROC: 0TB13ZX Excision of Left Kidney, Percutaneous Approach, Diagnostic (ICD-10-PCS; 2025-02-21)
DX: D30.02 Benign neoplasm of left kidney (principal); G13.8 Systemic atrophy primarily affecting central nervous system in other diseases classified elsewhere; I10 Essential (primary) hypertension; E78.5 Hyperlipidemia, unspecified; Z72.0 Tobacco use; Z79.899 Other long term (current) drug therapy; Z86.73 Personal history of transient ischemic attack (TIA), and cerebral infarction without residual deficits
CPT/HCPCS: 36251; 37243; 50200; 50593; 75726; 76937; 77012; 77013; 88305; 88341; 88342; 99152; 99153; C1769

== ENCOUNTER 2025-03-08 21:58 | Observation (INO) | payer OTHER, SELFPAY ==
[2025-03-08] VITALS (7 sets, daily range): BP systolic 116–145; BP diastolic 82–94; BMI 30.1; BMI 29.6
[2025-03-08 15:15] LABS: Urine Character Clear (Clear)
[2025-03-08 15:15] LABS: Hematocrit 40.1 % (39.0-52.0); Hemoglobin 13.1 g/dL (13.0-18.0); Mean Corp Hgb Conc. 32.7 g/dL (33.0-37.0); Mean Corpuscular Volume 95.0 fL (80.0-94.0); Nucleated Red Blood Cells % 0 % (-); Platelet Count 373 10^3/uL (130-400); Red Cell Dist. Width 13.9 % (11.5-14.5)
[2025-03-08 15:19] LABS: Urine Red Blood Cell 0-2 /HPF (0-2); Urine Squamous Cell 0-2 /LPF (Few)
[2025-03-08 15:50] LABS: ALT (SGPT) 33 U/L (0-50); AST (SGOT) 31 U/L (17-59); Albumin 4.3 g/dl (3.5-5.0); Alkaline Phosphatase 140 U/L (38-126); Blood Urea Nitrogen 12 mg/dl (9-20); Calcium 9.4 mg/dl (8.4-10.2); Carbon Dioxide 28 mmol/L (22-30); Chloride 105 mmol/L (98-107); Glucose 116 mg/dl (70-99); Potassium 5.0 mmol/L (3.5-5.1); Sodium 137 mmol/L (135-145); Total Protein 7.5 g/dl (6.3-8.2); eGFR > 60.00
--- NOTE | 2025-03-08 18:31 | ED.GENMED ---
History of Present Illness
General
Chief Complaint: Change in Mental Status
Source: patient and spouse
Exam Limitations: none
Time Seen by Provider: 03/08/25 17:53
Nursing documentation reviewed up to this point in time: agreed with
History of Present Illness
History of Present Illness:
80-year-old male with past med history of TIA hyperlipidemia hypertension depression presents to the ER for evaluation. 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
treated with IVIG (patient was hospitalized here). Patient was also found to have a renal mass at the time and had recent cryosurgery. It was felt the patient had a paraneoplastic syndrome secondary to newly found renal carcinoma of the left
kidney. Patient had cryoablation by IR.
at bedside reports since yesterday however she has noticed the patient seems \\ more confused than normal and is very sleepy. She reports since yesterday this is an acute change. She reports no fever or chills.
Phy Exam
General Physical Exam
General Presentation: no apparent distress
General age: appears stated age
General Skin: warm and dry
General Habitus: normal
General Mental: alert
General Hydration: appears well hydrated
Neurological Exam
Neurological Exam: alert and oriented x3
Musculoskeletal Exam
Musculoskeletal Exam: full ROM
Skin Exam
Skin Exam: normal color and warm/dry
Psychiatric Exam
Psychiatric Exam: normal mood/affect
Course
Orders/Labs/Results
Orders:
Orders
03/08/25 Dinner
Cholesterol Lowering
At Your Request: Limited, Gymnasium [employer] Required
Cholesterol Lowering: Sodium, 2 Gram
03/08/25 15:02
Complete Blood Count/With Diff Urgent
Comprehensive Metabolic Panel Urgent
03/08/25 15:07
Urinalysis Reflex To Culture Urgent
Date Specimen was Collected: 03/08/25
Time Specimen was Collected: 14:58
Urine Microscopic Reflex Cult Urgent
Urine Culture Urgent
HARESH Source: U
Specimen Description:
Date Specimen was Collected: 03/08/25
Time Specimen was Collected: 14:58
03/08/25 18:58
COVID-19 Antigen Urgent
Source: Nasal Swab
03/08/25 18:59
Influenza A+B Rapid Molecular Urgent
HARESH Source: Nasal Swab
Specimen Description:
03/08/25 19:00
CT Head W/o Iv Contrast Urgent
Comment:
Reason For Exam: change in ms
03/08/25 20:58
Electrocardiogram (*1) Stat
Reason for Study: Other
Other Reason for Exam: chest pain
EKG- Treatment ONCE
03/08/25 21:41
Admit/Transfer Patient As Directed
Co-Sign Provider:
Level of Care: Observation services
Assign to:: Telemetry
Physician / Group: Broderick Cavazos
Diagnosis: acute mental status change
Reason for Telemetry: Arrhythmia
Date to Stop Telemetry: 03/11/25
Time to Stop Telemetry: 11:00
PRN Pain Medication Management As Directed
May give lesser potent ordered pain med per pt: Yes
preference::
Protocol:: Medication orders for pain may be administered in a
manner that supports deferring to patient preference
when the pt is:
- Requesting an ordered lesser potent pain medication.
Least to most potent pain medications are defined
as: acetaminophen < NSAID < tramadol < opioids
(morphine, oxycodone, hydromorphone).
- Requesting a lesser dose of the same medication IF
ORDERED.
- Requesting a less intrusive route of administration
if both routes are prescribed by the provider (PO <
IV).
03/08/25 21:42
Code Status As Directed
Resuscitation Status: Full Code
03/08/25 23:17
0.9% Sodium Chloride 500 ml [Nss] 500 ml IV BOLUS
Acetaminophen [Tylenol] 650 mg PO Q4HPRN PRN
Diphenhydramine [Benadryl] 25 mg PO Q4HPRN PRN
Immune Globulin Per Pharmacy [Immune Globulin- Pharmacy To Place] 30 gram IV DIRECTED ONE
Loratadine [Claritin] 10 mg PO DAILYPRN PRN allergies
03/08/25 23:17
NEUROLOGY CONSULT Routine
Consulting Provider: Giuliano Herrera
Was physician already notified: Yes
Activity As Directed
Activity Level: As Tolerated
Vital Signs As Directed
Frequency: Per unit guidelines
Weight As Directed
Frequency: Once
Comment: on admission
DX Deep Vein Thrombosis Video Routine
03/08/25 23:30
Escitalopram Oxalate [Lexapro] 20 mg PO HS
Pantoprazole [Protonix] 40 mg PO HS
Pravastatin Sodium [Pravachol] 40 mg PO HS
03/09/25 06:00
Basic Metabolic Panel IN AM
Complete Blood Count/No Diff IN AM
03/09/25 18:00
Enoxaparin Sodium [Lovenox] 40 mg SC QPM
Multivitamin [Theragran] 1 tablet PO QPM
03/09/25 22:00
Aspirin Low Dose EC [Aspir Low (Enteric Coated)] 81 mg PO HS
Atenolol [Tenormin] 100 mg PO HS
Abnormal Lab Results
03/08/25 03/08/25
15:02 15:07
RBC 4.22 L 10^6/uL
(4.70-6.10)
MCV 95.0 H fL
(80.0-94.0)
MCHC 32.7 L g/dL
(33.0-37.0)
Absolute Lymphs (auto) 0.8 L 10^3/uL
(1.2-3.4)
Immature Gran % 0.6 H %
(0-0.5)
Neutrophils % 78.7 H %
(42.2-75.2)
Lymphocytes % 10.9 L %
(20.5-51.1)
Glucose 116 H mg/dl
(70-99)
Alkaline Phosphatase 140 H U/L
(38-126)
Ur Occult Blood Reflex 4+ A
(Negative)
Leukocyte Esterase Rfl 1+ A
(Negative)
Urine Bacteria (Reflex) Few A
(Negative)
Urine Albumin (Reflex) 2+ A
(Neg - Trace)
03/08/25 15:02
03/08/25 15:02
Vital Signs
Initial and Last Documented VS:
Initial Vital Signs
Temp Pulse Resp BP Pulse Ox
98.4 F 57 16 141/94 96
03/08/25 14:51 03/08/25 14:51 03/08/25 14:51 03/08/25 14:51 03/08/25 14:51
Last Documented Vital Signs
Temp Pulse Resp BP Pulse Ox
97.9 F 53 20 145/90 96
03/08/25 23:27 03/08/25 23:27 03/08/25 23:27 03/08/25 23:27 03/08/25 23:27
MDM/Problems Addressed
Differential Diagnosis Includes:
Not limited to infection, dehydration, worsening memory issues
MDM/Problems Addressed:
As documented patient is a 80-year-old male with recent diagnosis of renal cell carcinoma paraneoplastic syndrome/encephalitis brought by . reports patient has been doing fine however the past 2 days she has noticed a sudden change she is
sleeping more more confused than normal. He is a poor historian; however he has no focal deficits. He is able to follow commands but unable able to give clear-cut history. She reports no fevers or infectious symptoms.
Patient presents afebrile with normal white count unremarkable labs normal renal function negative COVID-negative flu negative chest x-ray negative urine
With concerning change of mental status and recent diagnosis of paraneoplastic syndrome encephalitis will admit
*Radiology
Radiology exam reviewed: radiology read reviewed
*Pulse Oximetry
SaO2: 96
Oxygen Mode of Delivery: Room air
Patient hypoxic: no
*Critical Care Note
Total Time (30-74mins, 75-104mins- exclusive of procedures): Not Applicable
ED Attending Note
-
Portions of this chart may have been created with voice recognition software.� Occasional wrong word or��sound alike� substitutions may have occurred due to the inherent limitations of voice recognition software.
Discharge Plan
Departure
Patient Disposition: Admit
Date of Disposition: 03/08/25
Time of Disposition: 20:59
Admit to: Med/Surg
Admit to doctor: hospitalist
Presentation/result/management discussed w/ accepting MD/DO: Hospitalist
Patient with high blood pressure during this ER visit?: Yes
Condition: Fair
Covid-19: Not Applicable
Discharge Problem:
Altered mental status
Interventions
Interventions:
*Risk Screen - Suicide Last Done: 03/08/25 14:51
*General Assessment Last Done: 03/08/25 14:51
*Neglect/Abuse Screening Last Done: 03/08/25 14:51
*ED- Fall Risk Assessment Last Done: 03/08/25 18:53
*ED COVID-19 Vaccine History Last Done: 03/08/25 18:53
*Nursing Disposition Last Done: 03/08/25 23:12
ED- Neurological Assessment Last Done: 03/08/25 19:00
Discharge Date and Time
Discharge Date/Time: 03/08/25 23:12
[2025-03-08 19:22] LABS: COVID-19 Antigen Negative (Negative)
--- NOTE | 2025-03-08 21:03 | HPS.HSE ---
Addendum entered and electronically signed by Broderick Cavazos MD 03/08/25 22:28:
This is an addendum to H&P written by Mila Godwin on 03/08/2025. �Patient seen and examined independently with [employer].
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 �No
fevers or chills. �No headache or neurological symptoms. �Symptoms very similar to recent admission when he was treated for paraneoplastic encephalitis with IVIG with improvement of symptoms.
Patient was recently admitted from 01/15 to 01/22 for sudden onset memory loss. �EEG showed encephalitis. �Lumbar puncture was performed which showed elevated proteins. �Patient was started on IVIG for paraneoplastic encephalitis.. �Patient had CT chest
abdomen pelvis showed renal mass on the left kidney concerning for renal cell carcinoma. �Patient had recent cryosurgery for renal mass.
Vital signs unremarkable.
Labs unremarkable. �Urinalysis unremarkable.
CT head shows no acute abnormality.
Acute metabolic encephalopathy concern for relapse of paraneoplastic encephalitis. �Neurology consulted and recommending IVIG.
Addendum entered and electronically signed by KAREN Caceres 03/08/25 21:58:
Spoke with Neurology requesting orders for IVIG 30 grams, pre Medicate with Tylenol 650 and Benadryl po 25 followed by 500 of saline
Original Note:
Family Physician
-
Family Physician: Virginia Lopez
Chief Complaint
-
acute change in mental status
History of Present Illness
Patient is a 80-year-old male with past medical history significant for adenocarcinoma of left kidney, TIA, hyperlipidemia, hypertension and mild cognitive impairment who presented to [facility] ED for evaluation of acute mental status change. Patient
with recent admission for paraneoplastic encephalitis that improved with IVIG. reported that patient had acute onset somnolent and not making sense yesterday and has not improved, she says these are similar to previous presentation in
paraneoplastic encephalitis. Denies any recent infectious symptoms, fever, chills, cough, shortness of breath, nausea, vomiting or diarrhea.
Medical History
Past Medical History
Past Medical History: Reports Other
Additional Past Medical History:
adenocarcinoma of left kidney
TIA
hyperlipidemia
hypertension
mild cognitive impairment
Hx paraneoplastic encephalitis
Past Surgical History: Reports Other
Additional Past Surgical History:
renal mass biopsy
left renal artery embolization followed by left cryoablation
Social History
Tobacco: Other (chews tobacco)
Alcohol: None
Drug: None
Personal:
Living: With Family
Family History
Family History: Not pertinent
Allergies / Home Medications
Allergies reflects when Allergies were last updated in [facility].
Home Medications with original date entered in [facility]
Allergy/Medication List:
Allergies
Allergy/AdvReac Type Severity Reaction Status Date / Time
multivitamin Allergy Unknown Uncoded 03/08/25 14:57
Home Medications
atenolol 100 mg tablet 100 mg PO HS Blood Pressure 01/14/25
escitalopram oxalate 20 mg tablet 20 mg PO HS Diabetes 01/14/25
omeprazole 20 mg capsule,delayed release 20 mg PO HS Gastrointestinal Issue 01/14/25
pravastatin 40 mg tablet 40 mg PO HS High Cholesterol 01/14/25
aspirin 81 mg tablet 81 mg PO HS Blood Clot Prevention/Tx 02/20/25
loratadine 10 mg tablet (Claritin) 10 mg PO DAILYPRN PRN allergies 03/08/25
therapeutic multivitamin 1 tab PO QPM 03/08/25
Review of Systems
-
Unable to obtain full review of systems at this time due to: Other (patient reports acute mental status change, and patient offers no complaints )
History Source: Patient
Physical Exam
Vital Signs
Vital Signs
Temp Pulse Resp BP Pulse Ox
98.4 F 56 28 116/93 92
03/08/25 14:51 03/08/25 19:55 03/08/25 19:55 03/08/25 19:00 03/08/25 19:30
Physical Exam
General: Well Developed, Well Nourished, No Apparent Distress, Comfortable, Conversant and Obese
HEENT: NormoCephalic, Moist mucous membranes and Atraumatic
Respiratory: Clear
Cardiac: S1/S2 and Regular Rhythm; No Murmur, Rub or Gallop
GI: Soft, Non Tender, Non Distended and Normal Bowel Sounds; No Organomegaly
Rectal: Deferred by Provider
Genito-urinary: Deferred by me
Musculoskeletal: No Clubbing, No Cyanosis and No Edema
Skin: Warm and IV/Catheter Site
Neuro: Awake and Nonfocal/grossly intact
Psych: Calm
Laboratory Results
-
03/08/25 15:02
03/08/25 15:02
Laboratory Results
Total Bilirubin 0.5 mg/dl (0.2-1.3) 03/08/25 15:02
AST 31 U/L (17-59) 03/08/25 15:02
ALT 33 U/L (0-50) 03/08/25 15:02
Alkaline Phosphatase 140 U/L (38-126) H 03/08/25 15:02
Data Reviewed
-
CT Scan: Report Reviewed by me (Head CT: No acute intracranial abnormality noted.)
Lab Data: Labs Reviewed by me
Impression/Plan
-
IMPRESSION/PLAN:
#acute mental status change with recent history of paraneoplastic encephalitis
Head CT: No acute intracranial abnormality noted.
- Admit to med/surg
- Consult Neurology
#TIA
- continue aspirin
#hyperlipidemia
- continue pravastatin
#hypertension
- continue atenolol
#depression
- continue escitalopram
#mild cognitive impairment
#adenocarcinoma of left kidney
Code status: full code
DVT prophylaxis: Lovenox sq
[2025-03-08] MEDS: PRAVACHOL 40 MG PO (23:45)
[2025-03-08] MEDS: LEXAPRO 20 MG PO (23:45)
[2025-03-08] MEDS: PROTONIX 40 MG PO (23:45)
[2025-03-09] VITALS (19 sets, daily range): BP systolic 125–161; BP diastolic 69–97
[2025-03-09] MEDS: GAMMAGARD 300 IV ×2 (00:06→15:36)
[2025-03-09] MEDS: NSS 500 IV (00:23)
[2025-03-09] MEDS: BENADRYL 25 MG PO (00:23)
[2025-03-09] MEDS: TYLENOL 650 MG PO (00:23)
[2025-03-09] MEDS: CLARITIN 10 MG PO (00:23)
[2025-03-09 07:08] LABS: Hematocrit 32.1 % (39.0-52.0); Hemoglobin 10.6 g/dL (13.0-18.0); Mean Corp Hgb Conc. 33.0 g/dL (33.0-37.0); Mean Corpuscular Volume 94.1 fL (80.0-94.0); Platelet Count 294 10^3/uL (130-400); Red Cell Dist. Width 13.6 % (11.5-14.5)
--- NOTE | 2025-03-09 07:20 | W.PN.HOSP.TC ---
Today's Communication/Plan
-
see a/p
Assessment / Plan
Assessment / Plan
Assessment/plan
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
#Recent history of paraneoplastic encephalitis
-CT head�no acute intracranial abnormality noted
-S/p IVIG 30 g last night
-Neurology consulted, input appreciated, recommending IVIG 2 more doses, with plans for discharge tomorrow
-Urinalysis negative, electrolytes normal
#Anemia
-Hemoglobin 10.6
#Hyperlipidemia
-Continue statin
#Essential hypertension
-Continue atenolol
#Depression
-Continue citalopram
#GERD
-Continue omeprazole
#Renal cell carcinoma of left kidney s/p percutaneous cryoablation and biopsy of endophytic mass
CODE STATUS full code
DVT prophylaxis Lovenox
Anticipated Discharge: 24 - 48 hours
Subjective/Interval History
-
Date of Service: March 09, 2025
Objective Data
-
Labs:
Laboratory Results
03/09/25
06:20
WBC 5.7
Hgb 10.6 L
Hct 32.1 L
Plt Count 294 D
Sodium Pending
Potassium Pending
Chloride Pending
Carbon Dioxide Pending
BUN Pending
Creatinine Pending
Glucose Pending
Calcium Pending
Vital Signs:
Vital Signs
Temp Pulse Resp BP Pulse Ox
98.2 F 50 14 125/75 96
03/09/25 03:06 03/09/25 03:06 03/09/25 03:06 03/09/25 03:06 03/09/25 03:06
Review of Systems
-
All other systems: Reviewed and negative (Except as documented)
Physical Exam
-
General: Well Developed and No Apparent Distress
Respiratory: Clear to Auscultation
Cardiac: Regular Rhythm and S1/S2
GI: Soft, Nontender, Nondistended and Normal Bowel Sounds
Musculoskeletal: No Edema
Skin: Warm
Neuro: Awake and Alert
Psych: Calm
[2025-03-09 07:24] LABS: Blood Urea Nitrogen 12 mg/dl (9-20); Calcium 8.3 mg/dl (8.4-10.2); Carbon Dioxide 27 mmol/L (22-30); Chloride 106 mmol/L (98-107); Estimated Creatinine Clearance 72 ml/min; Glucose 87 mg/dl (70-99); Potassium 4.1 mmol/L (3.5-5.1); Sodium 137 mmol/L (135-145); eGFR > 60.00
--- NOTE | 2025-03-09 07:52 | W.PN.UPDATE ---
Update Note
Progress Note Update
I saw and evaluated the patient. I reviewed the resident�s note and agree with findings and plan as documented in the resident�s note.
Denies CP/SOB/abd pain.
Gen: NAD, AAOx1.
Eyes: EOMI, PERRLA, no scleral icterus.
Neck: supple.
CV: RRR, +S1/S2, no m/r/g.
Resp: CTAB, no rales, wheezes, or rhonchi.
Abd: +BS, soft, NT, ND
Skin: No rashes.
Neuro: CN 2-12 intact, non-focal.
Psych: Normal mood and affect.
CT brain: No acute intracranial abnormality noted
Acute metabolic encephalopathy due to recurrent paraneoplastic encephalitis:
-h/o RCC
-neuro following
-cont IVIG
Other problems:
h/o TIA: cont ASA
HLD: cont statin
Essential HTN: cont BB
Depression: cont Lexapro
Mild cognitive impairment
FULL/Lovenox
--- NOTE | 2025-03-09 08:51 | PTCARENOTE ---
Received pt asleep in bed, easily arousable. Pleasant and cooperative. Oriented to self only. Bed alarm in place. States he's tired and wants to sleep. VSS. Will continue to monitor.
--- NOTE | 2025-03-09 10:37 | CON.NEURO ---
Neuro Assessment/Plan
Assessment
from prior admission:
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
EEG showing left hemisphere focal slowing indicating structural/functional abnormality
CSF WBC 1, RBC 19, glucose 60, protein 75. viral PCR negative.
[facility] CSF paraneoplastic antibodies negative
pathology report reviewed - oncocytoma
head CT 03/08 imgs rev'd normal
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
gave IVIG 30 g overnight, and will give 2nd dose this pm and 3rd dose tomorrow am, then he can go home
spoke with Dr Hernandez from IR - no need for imaging, too soon to tell post procedure change from therapeutic effect
I cannot find any documented relationship between paraneoplastic limbic encephalitis and oncocytoma, and suspect that this tumor might not be our answer, however would only know once the tumor is treated
Consultation
Order
Date of Consultation: 03/09/25
Requesting Provider:
Reason for Consult:
Subjective/Objective
Subjective Data
Date of Service: March 09, 2025
80 year old man well known to me, over 18 of January hol I diagnosed and treated him for autoimmune/paraneoplastic limbic encephalitis with IVIG, he responded very well. found to have renal mass, suspected RCC - 02/20-02/21 treated by IR
embolization, biopsy, ablation. 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
presents with altered mental status, confusion, sleepy x2 days. similar to his original presentation. worked up in ED no infection, head CT neative. as it had been 6 weeks since I gave IVIG, he followed up with our office, didnt get outpatient IVIG,
suspect that his paraneoplastic syndrome needed to be suppressed again, and recommended IVIG 30 grams overnight
this am patient reports feeling well.
Objective Data
Vital Signs
Temp Pulse Resp BP Pulse Ox
36.8 C 51 12 126/69 95
03/09/25 07:50 03/09/25 07:50 03/09/25 07:50 03/09/25 07:50 03/09/25 08:00
Lab Results
03/09/25 06:20
03/09/25 06:20
Sodium 137 mmol/L (135-145) 03/09/25 06:20
Potassium 4.1 mmol/L (3.5-5.1) 03/09/25 06:20
BUN 12 mg/dl (9-20) 03/09/25 06:20
Glucose 87 mg/dl (70-99) 03/09/25 06:20
Calcium 8.3 mg/dl (8.4-10.2) L 03/09/25 06:20
Patient Allergies
ferrous fumarate (From Centrum) Allergy (Verified 03/08/25 22:03)
MULTIVITAMIN-UNKNOWN RXN
ferrous gluconate (From Centrum) Allergy (Verified 03/08/25 22:03)
MULTIVITAMIN-UNKNOWN RXN
folic acid (From Centrum) Allergy (Verified 03/08/25 22:03)
MULTIVITAMIN-UNKNOWN RXN
lutein (From [facility]rum) Allergy (Verified 03/08/25 22:03)
MULTIVITAMIN-UNKNOWN RXN
lycopene (From Centrum) Allergy (Verified 03/08/25 22:03)
MULTIVITAMIN-UNKNOWN RXN
multivit with calcium, iron, and other minerals (From Centrum) Allergy (Verified 03/08/25 22:03)
MULTIVITAMIN-UNKNOWN RXN
multivitamin (From Centrum) Allergy (Verified 03/08/25 22:03)
MULTIVITAMIN-UNKNOWN RXN
multivitamin with iron,other minerals (From Centrum) Allergy (Verified 03/08/25 22:03)
MULTIVITAMIN-UNKNOWN RXN
multivitamin with minerals (From Centrum) Allergy (Verified 03/08/25 22:03)
MULTIVITAMIN-UNKNOWN RXN
Physical Exam
-
awake, alert, interactive, pleasant, cooperative
face symmetric
full strength, no pronator drift
Medications
-
Active Medications
Generic Name Dose Route Start Last Admin
Trade Name Freq PRN Reason Stop Dose Admin
Acetaminophen 650 mg 03/08/25 23:17 03/09/25 00:23
Acetaminophen 325 Mg Tablet PO 04/05/25 23:16 650 mg
Q4HPRN PRN Administration
IVIG pre medicate
Aspirin 81 mg 03/09/25 22:00
Aspirin 81 Mg (Enteric Coated) Tablet PO 04/06/25 21:59
HS DELMA
Atenolol 100 mg 03/09/25 22:00
Atenolol 50 Mg Tablet PO 04/06/25 21:59
HS DELMA
Diphenhydramine HCl 25 mg 03/08/25 23:17 03/09/25 00:23
Diphenhydramine 25 Mg Capsule PO 04/05/25 23:16 25 mg
Q4HPRN PRN Administration
IVIG pre medicate
Enoxaparin Sodium 40 mg 03/09/25 18:00
Enoxaparin Sodium 40 Mg/0.4 Ml Syringe SC 04/06/25 17:59
QPM DELMA
Escitalopram Oxalate 20 mg 03/08/25 23:30 03/08/25 23:45
Escitalopram 20 Mg Tablet PO 04/05/25 23:29 20 mg
HS DELMA Administration
Immune Globulin 30 grams in 300 mls @ 0 mls/hr 03/09/25 01:00 03/09/25 00:06
Gammagard IV 03/09/25 13:00 300 mls
DAILY DELMA Administration
Protocol
Per Protocol
Loratadine 10 mg 03/08/25 23:17 03/09/25 00:23
Loratadine 10 Mg Tablet PO 04/05/25 23:16 10 mg
DAILYPRN PRN Administration
allergies
Multivitamins Therapeutic 1 tablet 03/09/25 18:00
Multivitamin Tablet PO 04/06/25 17:59
QPM DELMA
Pantoprazole Sodium 40 mg 03/08/25 23:30 03/08/25 23:45
Pantoprazole 40 Mg Delayed Release Tablet PO 04/05/25 23:29 40 mg
HS DELMA Administration
Pravastatin Sodium 40 mg 03/08/25 23:30 03/08/25 23:45
Pravastatin 40 Mg Tablet PO 04/05/25 23:29 40 mg
HS DELMA Administration
Sodium Chloride 0 flush 03/08/25 23:00
Sodium Chloride 0.9% (Flush) Syringe IV 04/05/25 22:59
PER PROTOCOL DELMA
Home Medications
�Medication �Instructions �Recorded
atenolol 100 mg tablet 100 mg PO HS Blood Pressure 01/14/25
escitalopram oxalate 20 mg tablet 20 mg PO HS Diabetes 01/14/25
omeprazole 20 mg capsule,delayed 20 mg PO HS Gastrointestinal Issue 01/14/25
release
pravastatin 40 mg tablet 40 mg PO HS High Cholesterol 01/14/25
aspirin 81 mg tablet 81 mg PO HS Blood Clot 02/20/25
Prevention/Tx
loratadine 10 mg tablet (Claritin) 10 mg PO DAILYPRN PRN allergies 03/08/25
therapeutic multivitamin 1 tab PO QPM 03/08/25
--- NOTE | 2025-03-09 11:47 | CM ---
Reviewed the chart notes and spoke with the patient at the bedside. The patient is admitted under observational status. The ALEJANDRO letter was provided and explained. The patient had no questions with regards to the letter.
The patient resides with his spouse in an independent apartment at [facility]. The only DME in home is a shower chair. The patient reports no VN or SNF in the past. The patient confirmed his pharmacy of choice [facility].
continues to be available to patient/family and is monitoring medical plan for needs at discharge.
Plan: Discharge to home when medically stable. No needs anticipated at this time
[2025-03-09] MEDS: THERAGRAN 1 TABLET PO (17:29)
[2025-03-09] MEDS: LOVENOX 40 MG SC (17:29)
[2025-03-09] MEDS: LEXAPRO 20 MG PO (21:14)
[2025-03-09] MEDS: PROTONIX 40 MG PO (21:14)
[2025-03-09] MEDS: PRAVACHOL 40 MG PO (21:14)
[2025-03-09] MEDS: TENORMIN 100 MG PO (21:16)
[2025-03-09] MEDS: ASPIR LOW (ENTERIC COATED) 81 MG PO (21:16)
[2025-03-10] VITALS (8 sets, daily range): BP systolic 130–145; BP diastolic 71–94
[2025-03-10 06:28] LABS: Hematocrit 33.4 % (39.0-52.0); Hemoglobin 11.1 g/dL (13.0-18.0); Mean Corp Hgb Conc. 33.2 g/dL (33.0-37.0); Mean Corpuscular Volume 94.1 fL (80.0-94.0); Nucleated Red Blood Cells % 0 % (-); Platelet Count 275 10^3/uL (130-400); Red Cell Dist. Width 13.3 % (11.5-14.5)
[2025-03-10 06:33] LABS: Blood Urea Nitrogen 11 mg/dl (9-20); Calcium 8.6 mg/dl (8.4-10.2); Carbon Dioxide 28 mmol/L (22-30); Chloride 105 mmol/L (98-107); Estimated Creatinine Clearance 72 ml/min; Glucose 102 mg/dl (70-99); Potassium 4.1 mmol/L (3.5-5.1); Sodium 137 mmol/L (135-145); eGFR > 60.00
--- NOTE | 2025-03-10 07:12 | W.PN.HOSP.TC ---
Today's Communication/Plan
-
See A/P
Assessment / Plan
Assessment / Plan
Assessment/plan
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
#Recent history of paraneoplastic encephalitis s/p IVIG 6 weeks ago at previous admission
-CT head�no acute intracranial abnormality noted
-S/p IVIG 30 g (3 doses this admission)
-Neurology consulted, input appreciated
-Urinalysis negative, electrolytes normal
#Anemia
-Monitor CBC
-Outpatient workup
#Hyperlipidemia
-Continue statin
#Essential hypertension
-Continue atenolol
#Depression
-Continue citalopram
#GERD
-Continue omeprazole
#Renal cell carcinoma of left kidney s/p percutaneous cryoablation and biopsy of endophytic mass
CODE STATUS full code
DVT prophylaxis Lovenox
Anticipated Discharge: Within 24 hours
Subjective/Interval History
-
Date of Service: March 10, 2025
Objective Data
-
Labs:
Laboratory Results
03/10/25
05:58
WBC 4.1 L
Hgb 11.1 L
Hct 33.4 L
Plt Count 275
Sodium 137
Potassium 4.1
Chloride 105
Carbon Dioxide 28
BUN 11
Creatinine 0.9
Glucose 102 H
Calcium 8.6
Vital Signs:
Vital Signs
Temp Pulse Resp BP Pulse Ox
99.0 F 52 17 129/69 96
03/09/25 23:17 03/09/25 23:17 03/09/25 23:17 03/09/25 23:17 03/09/25 23:17
I&O
03/09/25 03/10/25 03/11/25
06:59 06:59 06:59
Intake Total 780 / 780
Balance 780 / 780
Review of Systems
-
All other systems: Reviewed and negative (Except as documented)
Physical Exam
-
General: Well Developed and No Apparent Distress
Respiratory: Clear to Auscultation
Cardiac: Regular Rhythm and S1/S2
GI: Soft, Nontender, Nondistended and Normal Bowel Sounds
Musculoskeletal: No Edema
Skin: Warm
Neuro: Awake and Alert
Psych: Calm
--- NOTE | 2025-03-10 07:59 | W.PN.UPDATE ---
Update Note
Progress Note Update
I saw and evaluated the patient. I reviewed the resident�s note and agree with findings and plan as documented in the resident�s note.
No new complaints.
Gen: NAD, AAOx2-3.
Eyes: EOMI, PERRLA, no scleral icterus.
Neck: supple.
CV: RRR, +S1/S2, no m/r/g.
Resp: CTAB, no rales, wheezes, or rhonchi.
Abd: +BS, soft, NT, ND
Skin: No rashes.
Neuro: CN 2-12 intact, non-focal.
Psych: Normal mood and affect.
CT brain: No acute intracranial abnormality noted
Acute metabolic encephalopathy due to recurrent paraneoplastic encephalitis:
-h/o RCC
-neuro following
-will complete 3 doses of IVIG and then the pt is medically cleared for d/c by neurology
Other problems:
h/o TIA: cont ASA
HLD: cont statin
Essential HTN: cont BB
Depression: cont Lexapro
Mild cognitive impairment
FULL/Lovenox
Medically cleared for discharge. Case management aware.
Total time spent on d/c = 31 min. This included today's physical exam, progress note, review of laboratory and diagnostic data, preparation of discharge documents and prescriptions, and discussions about the pt's hospital course and discharge plan
with the patient and other medical staff services coordinator involved in the patient's care.
--- NOTE | 2025-03-10 09:04 | CM ---
Reviewed the chart notes. Patient for discharge to home today. No needs. Spouse to provide transportation.
[2025-03-10] MEDS: GAMMAGARD 300 IV (09:10)
--- NOTE | 2025-03-10 09:13 | W.DCSUMMARY ---
Discharge Summary
Discharge Data
Date of Admission: 03/08/25
Date of Discharge: 03/10/25
-
Pending Results: No
Hospital Course
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 He had no fevers, no chills. No headaches or
neurological symptoms. He was previously admitted for similar complaints 6 weeks ago and at that time was treated for paraneoplastic encephalitis with IVIG with improvement of his symptoms. At this new admission, CTA head showed no acute
abnormality. Neurology was consulted to evaluate patient. Per neurology, it was noted that this is an exacerbation of his autoimmune/paraneoplastic encephalitis. He was therefore given 3 total doses of IVIG with significant improvement of his
symptoms. He will be discharged today, to follow-up with neurology as an outpatient.
Discharge Plan
-
Patient Disposition: Home (Routine Discharge)
Discharge Diagnosis/Procedures: Acute metabolic encephalopathy secondary to recurrent paraneoplastic encephalitis
Condition: Fair
Diet: As tolerated
Activity: As tolerated
Referrals:
Virginia Lopez DO [Family Provider, Internal Medicine] - in two to four weeks
Prescriptions:
Continued
pravastatin 40 mg tablet
40 mg PO HS
atenolol 100 mg tablet
100 mg PO HS
omeprazole 20 mg capsule,delayed release(DR/EC)
20 mg PO HS
escitalopram oxalate 20 mg tablet
20 mg PO HS
aspirin 81 mg Tablet
81 mg PO HS
therapeutic multivitamin Tablet
1 tab PO QPM
loratadine [Claritin] 10 mg Tablet
10 mg PO DAILYPRN PRN (Reason: allergies)
Discharge Orders:
Discharge Patient (As Directed); Ordered 03/10/25
Ordered By: Leonard Maxwell
Discharge Date and Time
Print Language: TONGAN
--- NOTE | 2025-03-10 11:47 | W.PN.NEURO.1 ---
Today's Communication / Plan
-
discharge after IVIG
Neuro Assessment/Plan
Assessment
from prior admission:
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
EEG showing left hemisphere focal slowing indicating structural/functional abnormality
CSF WBC 1, RBC 19, glucose 60, protein 75. viral PCR negative.
[facility] CSF paraneoplastic antibodies negative
pathology report reviewed - oncocytoma
head CT 03/08 imgs rev'd normal
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
IVIG 30 g dose #3, then Mr Fenton can go home
spoke with Dr Hernandez from IR - no need for imaging, too soon to tell post procedure change from therapeutic effect
I cannot find any documented relationship between paraneoplastic limbic encephalitis and oncocytoma, and suspect that this tumor might not be our answer, however would only know once the tumor is treated
Plan
he is supposed to follow up with our office Kathi Carroll NP tomorrow
I would begin IGG ~30 grams every other week, several months, then slowly taper
though other dosing options are available and can be discussed as outpatient. discussed IVIG infusion suite vs home infusion vs self sub q IGG
to confirm that it is paraneoplastic, the offending tumor must be found within 5 years. otherwise it may just be autoimmune
Subjective/Objective
Subjective Data
Date of Service: March 10, 2025
patient and believe he is essentially back to baseline
Objective Data
Vital Signs
Temp Pulse Resp BP Pulse Ox
36.7 C 55 16 137/80 97
03/10/25 07:55 03/10/25 11:30 03/10/25 07:55 03/10/25 11:30 03/10/25 07:55
Lab Results
03/10/25 05:58
03/10/25 05:58
Sodium 137 mmol/L (135-145) 03/10/25 05:58
Potassium 4.1 mmol/L (3.5-5.1) 03/10/25 05:58
BUN 11 mg/dl (9-20) 03/10/25 05:58
Glucose 102 mg/dl (70-99) H 03/10/25 05:58
Calcium 8.6 mg/dl (8.4-10.2) 03/10/25 05:58
Patient Allergies
No Known Allergies Allergy (Unverified 03/09/25 12:31)
Physical Exam
-
awake, alert, interactive, pleasant, cooperative
face symmetric
full strength, no pronator drift
== END 2025-03-10 13:01 | disposition home or self-care (01) ==
LOC: 2 NORTH 21:58
PROVIDERS: Emergency Medicine; Nurse Practitioner; Nurse Practitioner Family; Student in an Organized Health Care Education/Training Program; ADMITTING PHYSICIAN Hospitalist; ATTENDING PHYSICIAN Internal Medicine; CONSULT PHYSICIAN Psychiatry & Neurology Clinical Neurophysiology; EMERGENCY PHYSICIAN Emergency Medicine; FAMILY PHYSICIAN Internal Medicine
DX: G04.81 Other encephalitis and encephalomyelitis (principal); G93.41 Metabolic encephalopathy; C64.2 Malignant neoplasm of left kidney, except renal pelvis; D63.0 Anemia in neoplastic disease; E78.5 Hyperlipidemia, unspecified; I10 Essential (primary) hypertension; F32.A Depression, unspecified; K21.9 Gastro-esophageal reflux disease without esophagitis; D64.9 Anemia, unspecified; G31.84 Mild cognitive impairment of uncertain or unknown etiology; Z11.52 Encounter for screening for COVID-19; Z79.899 Other long term (current) drug therapy; Z86.73 Personal history of transient ischemic attack (TIA), and cerebral infarction without residual deficits
CPT/HCPCS: 70450; 80048; 80053; 81003; 81015; 85025; 85027; 87070; 87086; 87502; 87811; 93005; 99285; G0378; J1569

== ENCOUNTER 2025-03-11 11:49 | Emergency (ER) | payer MEDICARE, SELFPAY ==
[2025-03-11] VITALS (7 sets, daily range): BP systolic 122–183; BP diastolic 71–105; BMI 29.5
--- NOTE | 2025-03-11 14:04 | ED.GENMED ---
History of Present Illness
General
Chief Complaint: Change in Mental Status
Time Seen by Provider: 03/11/25 13:55
History of Present Illness
History of Present Illness:
80-year-old male presents from the neurology office for possible infusion of IVIG. Patient was admitted to this hospital March 08 to for evaluation of altered mental status. 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
IVIG. Neurology felt as though he needed more IVIG as he presented to their office acutely confused which was worse compared to his discharge from yesterday. Patient provides no history at this time.
Review of Systems
Review of Systems
Allergies reviewed?: Yes
All Other Systems: ROS reviewed and negative except as documented in HPI and ROS
Phy Exam
Physical Exam
Physical Exam:
GEN: Well appearing, NAD, WDWN
HEENT: Oral mucosa moist, no scleral icterus
Cardiac: Regular rate
Lung: No respiratory distress, no tachypnea
MSK: No gross deformity or injuries
Skin: Good color, no pallor or jaundice, no rashes
Neuro: Alert, agitates easily, moves all extremities
Psych: Calm, cooperative
Course
Orders/Labs/Results
Orders:
Orders
03/11/25 13:18
EEG Routine Urgent
Reason for Exam: ? Status epilepticus
03/11/25 14:21
Speech Screening from [facility] Routine
03/11/25 15:45
Acetaminophen [Tylenol] 650 mg PO NOW STA
Diphenhydramine [Benadryl] 25 mg PO NOW ONE
03/11/25 16:00
Immune Globulin 30 Grams/300Ml [Gammagard] 30 grams in 300 ml IV ONCE
03/11/25 17:00
COVID-19 Antigen Urgent
Source: Nasal Swab
Complete Blood Count/With Diff Urgent
Comprehensive Metabolic Panel Urgent
03/11/25 17:13
Urinalysis Reflex To Culture Urgent
Date Specimen was Collected: 03/11/25
Time Specimen was Collected: 17:12
Urine Microscopic Reflex Cult Urgent
Urine Culture Urgent
HARESH Source: U
Specimen Description:
Date Specimen was Collected: 03/11/25
Time Specimen was Collected: 17:12
03/11/25 17:35
Levetiracetam Injectable [Keppra] 2,000 mg IV NOW STA
CR Chest - 2 Views Urgent
Comment:
Reason For Exam: seizures, infectious workup
Abnormal Lab Results
03/11/25 03/11/25
17:00 17:13
WBC 4.7 L 10^3/uL
(4.8-10.8)
RBC 4.14 L 10^6/uL
(4.70-6.10)
Hgb 12.7 L g/dL
(13.0-18.0)
MCV 94.2 H fL
(80.0-94.0)
MCHC 32.6 L g/dL
(33.0-37.0)
MPV 11.0 H fL
(7.4-10.4)
Absolute Lymphs (auto) 0.5 L 10^3/uL
(1.2-3.4)
Neutrophils % 76.6 H %
(42.2-75.2)
Lymphocytes % 10.3 L %
(20.5-51.1)
Monocytes % 11.6 H %
(1.7-9.3)
Glucose 119 H mg/dl
(70-99)
Alkaline Phosphatase 141 H U/L
(38-126)
Total Protein 8.9 H g/dl
(6.3-8.2)
Ur Occult Blood Reflex 3+ A
(Negative)
Leukocyte Esterase Rfl 1+ A
(Negative)
Urine RBC 3-6 A /HPF
(0-2)
Urine Bacteria (Reflex) Moderate A
(Negative)
03/11/25 17:00
03/11/25 17:00
Vital Signs
Initial and Last Documented VS:
Initial Vital Signs
Temp Pulse Resp BP Pulse Ox
99.2 F 55 18 183/105 94
03/11/25 11:53 03/11/25 11:53 03/11/25 11:53 03/11/25 11:53 03/11/25 11:53
Last Documented Vital Signs
Temp Pulse Resp BP Pulse Ox
97.5 F 53 19 122/71 97
03/11/25 19:15 03/11/25 19:15 03/11/25 19:15 03/11/25 19:15 03/11/25 19:15
MDM/Problems Addressed
MDM/Problems Addressed:
Patient seen by neurology at bedside, bedside EEG was performed which reportedly showed abnormal waveforms compatible with toxic metabolic encephalitis. Infectious workup was then pursued which was close, he does have bacteriuria but no leukocytes
suspicious for acute UTI. Per neurology recommendations the patient was given IV levetiracetam load and will be discharged on 500 mg twice daily, he is scheduled for outpatient IV infusion tomorrow
*Pulse Oximetry
SaO2: 93
Oxygen Mode of Delivery: Room air
Patient hypoxic: no
*Critical Care Note
Total Time (30-74mins, 75-104mins- exclusive of procedures): Not Applicable
ED Attending Note
-
Portions of this chart may have been created with voice recognition software.� Occasional wrong word or��sound alike� substitutions may have occurred due to the inherent limitations of voice recognition software.
Discharge Plan
Departure
Patient Disposition: Home (Routine Discharge)
Date of Disposition: 03/11/25
Time of Disposition: 19:04
Patient with high blood pressure during this ER visit?: No
Discharge Problem:
Altered mental status
Instructions: Altered Mental Status (DC)
Prescriptions:
New
levetiracetam [Keppra] 500 mg tablet
500 mg PO BID Qty: 60 0RF
No Action
pravastatin 40 mg tablet
40 mg PO HS
atenolol 100 mg tablet
100 mg PO HS
omeprazole 20 mg capsule,delayed release(DR/EC)
20 mg PO HS
escitalopram oxalate 20 mg tablet
20 mg PO HS
aspirin 81 mg Tablet
81 mg PO HS
therapeutic multivitamin Tablet
1 tab PO QPM
loratadine [Claritin] 10 mg Tablet
10 mg PO DAILYPRN PRN (Reason: allergies)
Referrals:
Virginia Lopez DO [Family Provider, Internal Medicine]
Activity Restrictions/Additional Instructions:
Begin the anti seizure medications as recommended by neurology tomorrow morning
[facility] tomorrow morning at 0830 for your IVIG infusion
Interventions
Interventions:
*Risk Screen - Suicide Last Done: 03/11/25 11:53
*General Assessment Last Done: 03/11/25 14:14
*Neglect/Abuse Screening Last Done: 03/11/25 11:53
*ED- Fall Risk Assessment Last Done: 03/11/25 14:14
*ED COVID-19 Vaccine History Last Done: 03/11/25 14:14
*Nursing Disposition Last Done: 03/11/25 19:15
ED- Cardiac Assessment Last Done: 03/11/25 14:19
ED- Neurological Assessment Last Done: 03/11/25 14:19
ED Swallowing Screen Last Done: 03/11/25 14:19
Discharge Date and Time
Discharge Date/Time: 03/11/25 19:16
Print Language: MALDIVIAN
--- NOTE | 2025-03-11 15:26 | CON.NEURO ---
Addendum entered and electronically signed by Giuliano Herrera MD 03/11/25 22:29:
My initial EEG read was frequent left hemispheric focal slowing and FIRDA, and I advised infections work up which was negative, and gave Keppra 2 grams in the ED, with Rx Keppra 500 BID.
however after spending a lot more time with his EEG, I believe that he is having EEG seizures.
The EEG seizures consist of left temporal rhythmic delta evolving into generalized rhythmic delta lasting ~15-20 seconds. at the end of each seizure the injection molding technician noticed yawning. approximately 10-15 seizures were seen.
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
I texted his and advised starting Keppra 1500 BID prior to going to the infusion suite.
Original Note:
Neuro Assessment/Plan
Assessment
from prior admission:
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
EEG 01/16/25 showing left hemisphere focal slowing indicating structural/functional abnormality
CSF WBC 1, RBC 19, glucose 60, protein 75. viral PCR negative.
[facility] CSF paraneoplastic antibodies negative
pathology report reviewed - oncocytoma
head CT 03/08 imgs rev'd normal
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 We will obtain routine EEG r/o subclinical seizure as the cause of his symptoms, and he is
set up for outpatient IVIG 8:30 am tomorrow
spoke with Dr Hernandez from - no need for imaging, too soon to tell post procedure change from therapeutic effect
I cannot find any documented relationship between paraneoplastic limbic encephalitis and oncocytoma, and suspect that this tumor might not be our answer, however would only know once the tumor is treated, at which time, if his PLE persists then PET
scan looking for tumor.
to confirm that it is paraneoplastic, the offending tumor must be found within 5 years. otherwise it may just be autoimmune
I spoke to Dr Jim Neves at [facility] regarding transferring the patient for neuroimmunology consult re plasmapheresis or rituximab.
Consultation
Order
Date of Consultation: 03/11/25
Requesting Provider: Abbe
Reason for Consult: paraneoplastic limbic encephalitis
Subjective/Objective
Subjective Data
Date of Service: March 11, 2025
80 year old man well known to me, over 18 of January holiday I diagnosed and treated him for autoimmune/paraneoplastic limbic encephalitis with IVIG, he responded very well. found to have renal mass, suspected RCC - 02/20-02/21 treated by IR
embolization, biopsy, ablation. 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
He was admitted 03/09 with altered mental status, confusion, sleepy x2 days. similar to his original presentation. worked up in ED no infection, head CT negative. as it had been 6 weeks since I gave IVIG, I gave him 3 more doses of IVIG 30 g, and he
was discharged home yesterday afternoon. yesterday evening he was getting lost in his 2 bedroom apartment that he shares with his , which did not happen when he went home at the time of his original presentation.
Today he followed up with Mila Carroll [employer] W[employer] in our office, and between the safety concern of his getting lost at home, and the belief that it would take quite some time to get him IVIG infusion as an outpatient, Mila and I decided to send him to
the ED for one more dose of IVIG, and get a routine EEG to rule out subclinical seizures as the cause of his symptoms.
Objective Data
Vital Signs
Temp Pulse Resp BP Pulse Ox
37.3 C 56 18 139/80 93
03/11/25 11:53 03/11/25 14:00 03/11/25 14:00 03/11/25 14:00 03/11/25 14:04
Patient Allergies
No Known Allergies Allergy (Unverified 03/09/25 12:31)
Medications
-
Active Medications
Generic Name Dose Route Start Last Admin
Trade Name Freq PRN Reason Stop Dose Admin
Acetaminophen 650 mg 03/11/25 14:02
Acetaminophen 325 Mg Tablet PO 03/11/25 14:03
NOW STA
Diphenhydramine HCl 25 mg 03/11/25 14:03
Diphenhydramine 25 Mg Capsule PO 03/11/25 14:04
NOW ONE
Immune Globulin 30 gram 03/11/25 14:02
Immune Globulin (Calculator Uses Ibw) - Pharmacy To Place Order IV 03/11/25 14:03
DIRECTED ONE
Home Medications
�Medication �Instructions �Recorded
atenolol 100 mg tablet 100 mg PO HS Blood Pressure 01/14/25
escitalopram oxalate 20 mg tablet 20 mg PO HS Diabetes 01/14/25
omeprazole 20 mg capsule,delayed 20 mg PO HS Gastrointestinal Issue 01/14/25
release
pravastatin 40 mg tablet 40 mg PO HS High Cholesterol 01/14/25
aspirin 81 mg tablet 81 mg PO HS Blood Clot 02/20/25
Prevention/Tx
loratadine 10 mg tablet (Claritin) 10 mg PO DAILYPRN PRN allergies 03/08/25
therapeutic multivitamin 1 tab PO QPM 03/08/25
[2025-03-11 17:15] LABS: Hematocrit 39.0 % (39.0-52.0); Hemoglobin 12.7 g/dL (13.0-18.0); Mean Corp Hgb Conc. 32.6 g/dL (33.0-37.0); Mean Corpuscular Volume 94.2 fL (80.0-94.0); Nucleated Red Blood Cells % 0 % (-); Platelet Count 312 10^3/uL (130-400); Red Cell Dist. Width 13.4 % (11.5-14.5)
[2025-03-11 17:26] LABS: ALT (SGPT) 30 U/L (0-50); AST (SGOT) 35 U/L (17-59); Albumin 4.4 g/dl (3.5-5.0); Alkaline Phosphatase 141 U/L (38-126); Blood Urea Nitrogen 12 mg/dl (9-20); Calcium 8.4 mg/dl (8.4-10.2); Carbon Dioxide 29 mmol/L (22-30); Chloride 100 mmol/L (98-107); Estimated Creatinine Clearance 74 ml/min; Glucose 119 mg/dl (70-99); Potassium 4.4 mmol/L (3.5-5.1); Sodium 135 mmol/L (135-145); Total Protein 8.9 g/dl (6.3-8.2); eGFR > 60.00
[2025-03-11 17:27] LABS: Urine Character Clear (Clear)
[2025-03-11 17:29] LABS: COVID-19 Antigen Negative (Negative)
[2025-03-11] MEDS: KEPPRA 2000 MG IV (17:49)
[2025-03-11 19:07] LABS: Urine Urothelial Cell 0-2 /LPF (FEW)
--- NOTE | 2025-03-11 21:54 | EEG.RPT ---
Electroencephalogram Report
Recording
Date of EE03/11/25
Type of EEG: Routine
Length of EEG recordin mins
Done with Video Recording: Yes
Patient Status: Emergency Room
Recording Conditions: Awake and Confused
Photic Stimulation Performed: Yes
Report
Clinical Background:�He is a 80 year old man with paraneoplastic limbic encephalitis, worsening confusion.
Introduction: A routine bedside EEG was done using [employer] 10-20 electrode placement protocol.
Background: In the most alert state, there is continuous generalized slowing with polymorphic theta activity. There is spontaneous variability and reactivity.�
Sleep: No sleep is seen.�
Focal/epileptiform: Frequent focal slowing consists of polymorphic delta at F7, T3, T5. There were no epileptiform discharges. No clinical or electrographic seizures occurred during this recording.
EEG Seizures: The EEG seizures consist of left temporal rhythmic delta evolving into generalized rhythmic delta lasting ~15-20 seconds. at the end of each seizure he yawns. approximately 10-15 seizures were seen.
Photic stimulation: resulted in no change driving response. There was no photo myogenic or photoparoxysmal response.�
Impression: nonconvulsive status epilepticus stage I
== END 2025-03-11 19:16 | disposition home or self-care (01) ==
LOC: EMR 11:49
PROVIDERS: Physician Assistant; EMERGENCY PHYSICIAN Emergency Medicine; FAMILY PHYSICIAN Internal Medicine; OTHER PHYSICIAN Psychiatry & Neurology Clinical Neurophysiology
DX: R41.82 Altered mental status, unspecified (principal); R94.01 Abnormal electroencephalogram [EEG]
CPT/HCPCS: 96374; 99284; 71046; 80053; 81003; 81015; 85025; 87086; 87811; 95816; J1569

== ENCOUNTER 2025-03-12 08:40 | Outpatient (RCR) | payer MEDICARE, SELFPAY ==
[2025-03-12 08:50] VITALS: BP 159/90
[2025-03-12] MEDS: NSS 250 IV (09:06)
[2025-03-12] MEDS: TYLENOL 650 MG PO (09:07)
[2025-03-12] MEDS: BENADRYL 25 MG PO (09:07)
[2025-03-12] MEDS: GAMMAGARD 300 IV (09:09)
[2025-03-12 09:18] VITALS: BP 169/85
[2025-03-12 09:48] VITALS: BP 155/86
[2025-03-12 10:18] VITALS: BP 170/95
[2025-03-12 10:48] VITALS: BP 156/76
[2025-03-12 11:10] VITALS: BP 161/79
== END 2025-03-13 09:01 | disposition home or self-care (01) ==
LOC: OID 08:40
PROVIDERS: ATTENDING PHYSICIAN Psychiatry & Neurology Clinical Neurophysiology; FAMILY PHYSICIAN Internal Medicine
DX: G04.90 Encephalitis and encephalomyelitis, unspecified (principal)
CPT/HCPCS: 96365; 96366; J1569